=== PATIENT | female | born 1975 | race Caucasian/White ===

== ENCOUNTER 2022-07-15 12:30 | Inpatient (IN) ==
[2022-07-15 13:12] LABS: POC Calcium, Ionized 1.13 (1.16-1.32); POC Creatinine 0.8 (0.6-1.2); POC Potassium 3.8 (3.3-5.1)
[2022-07-15 13:41] LABS: Basophils # (Auto) 0.09 K/mcL (0.00-0.30); Basophils % (Auto) 0.5 % (0.0-2.0); Eosinophils # (Auto) 0.49 K/mcL (0.00-0.70); Hematocrit 39.9 % (34.1-44.9); Lymphocytes # (Auto) 2.42 K/mcL (1.50-4.80); Lymphocytes % (Auto) 14.7 % (15.5-49.0); Mean Cell Volume 91.5 fL (80.0-100.0); Mean Corpuscular HGB Conc 32.6 g/dL (31.0-36.0); Mean Platelet Volume 10.1 fL (8.8-12.5); Monocytes # (Auto) 1.16 K/mcL (0.10-0.90); Monocytes % (Auto) 7.1 % (1.0-12.0); Neutrophils % (Auto) 73.6 % (38.0-78.0); Platelet Count 252 K/mcL (140-440); RBC 4.36 M/mcL (3.59-5.38); Red Cell Distribution Width 13.7 % (11.5-14.5); WBC 16.4 K/mcL (4.5-11.0)
--- NOTE | 2022-07-15 13:49 | Cat Scan Report ---
History: Pneumonia with dyspnea TECHNIQUE: The chest was imaged without contrast in axial plane at 2.5 mm intervals. Sagittal, coronal and MIPS images were created. The radiation exposure was limited using dose reduction technology. FINDINGS: There is a mosaic pattern throughout both lungs. Most of the secondary pulmonary lobules have relatively high attenuation, ground glass opacification but there are many which are hyperlucent. There is a mild patchy distribution of consolidated lung parenchyma in the posterior and central portion of the right upper lobe and smaller area of similar consolidation in the lateral segment of the right middle lobe and beneath the major fissure anteriorly in the middle third of the right lower lobe. No focal consolidation is present in the left lung. There is no pleural effusion. No abnormally enlarged lymph nodes are seen on this nonenhanced study. Trachea and bronchi are normal. There is no apparent bronchial wall thickening or endobronchial mass. Although the pulmonary arteries cannot be evaluated for PE, the main pulmonary artery is normal in caliber and there is no evidence of chronic organized clot in the central pulmonary arteries. The heart is normal in size and contour. Minimal plaque formation is seen in the left anterior descending coronary. Aorta is normal in caliber. There is severe fatty infiltration throughout the liver. Impression: Mosaic lung parenchyma with small patchy infiltrates in the right lung. This is probably due to infection/inflammation, superimposed upon underlying airway disease. This does not appear to be a primary obstructive small airways disease. Chronic pulmonary embolism is also considered unlikely. Pulmonary edema and pulmonary hemorrhage are also in the differential. Interpreted and Authenticated by: Arnoldo Holland 07/15/22
[2022-07-15] MEDS ORDERED: cefTRIAXone 1 GM VIAL IV ONE ×2 (14:20→18:00)
[2022-07-15] MEDS ORDERED: AZITHROMYCIN 500 MG in DEXTROSE 5% IN WATER 250 ML IV ONE (14:20)
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
[2022-07-15 15:00] LABS: Albumin 3.5 gm/dL (3.2-5.2); Bilirubin,Direct 0.5 mg/dL (<0.3); Bilirubin,Total 1.1 mg/dL (0.1-1.0); C-Reactive Protein 14.5 mg/dL (0.03-0.80)
[2022-07-15] MEDS ORDERED: HYDROcodone/APAP 10/325MG TABLET PO ONE (15:26)
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
[2022-07-15] MEDS ORDERED: HYDROcodone/APAP 5/325MG TABLET PO ONE (15:35)
[2022-07-15] MEDS ORDERED: LABETALOL 5 MG/ML ML IV PRN (17:14)
[2022-07-15] MEDS ORDERED: SENNOSIDES 1 TABLET PO PRN (17:14)
[2022-07-15] MEDS ORDERED: POLYETHYLENE GLYCOL 3350 17 GM PACKET PO PRN (17:14)
[2022-07-15] MEDS ORDERED: POTASSIUM CHLORIDE 20 MEQ TABLET PO PRN ×2 (17:14)
[2022-07-15] MEDS ORDERED: ACETAMINOPHEN 325 MG TABLET PO PRN (17:14)
[2022-07-15] MEDS ORDERED: MAGNESIUM SULFATE 2 GM/50 ML BAG IV PRN (17:14)
[2022-07-15] MEDS ORDERED: METOCLOPRAMIDE 10 MG/2 ML VIAL IV PRN (17:14)
[2022-07-15] MEDS ORDERED: ONDANSETRON 4 MG/2 ML VIAL IV PRN (17:14)
[2022-07-15] MEDS ORDERED: POTASSIUM CHLORIDE 40 MEQ in DEXTROSE 5% IN WATER 500 ML IV PRN (17:14)
[2022-07-15] MEDS ORDERED: LACTULOSE 20 GM/30 ML ORAL.SOL PO PRN (17:14)
[2022-07-15] MEDS ORDERED: ALPRAZolam 0.5 MG TABLET PO PRN (19:13)
[2022-07-15] MEDS ORDERED: HYDROcodone/APAP 10/325MG TABLET PO PRN (19:13)
[2022-07-15] MEDS ORDERED: tiZANidine 4 MG TABLET PO PRN (19:40)
[2022-07-15] MEDS: BUDESONIDE 0.5 MG/2 ML AMPUL.NEB NEB SCH (19:46)
[2022-07-15] MEDS: IPRATROPIUM/ALBUTEROL 3 ML AMPUL.NEB NEB PRN (19:46)
[2022-07-15] MEDS: HYDROcodone/APAP 5/325MG TABLET PO PRN (21:31)
[2022-07-15] MEDS: ENOXAPARIN 40 MG/0.4 ML SYRINGE SQ SCH (21:33)
[2022-07-15] MEDS: busPIRone 5 MG TABLET PO SCH (21:33)
[2022-07-15] MEDS: FAMOTIDINE 20 MG TABLET PO SCH (21:34)
[2022-07-15] MEDS: DOCUSATE SODIUM 100 MG CAPSULE PO SCH (21:34)
[2022-07-15] MEDS: traZODone HCL 100 MG TABLET PO SCH (21:34)
[2022-07-15] MEDS: MONTELUKAST 10 MG TABLET PO SCH (21:34)
[2022-07-15] MEDS: NORTRIPTYLINE 25 MG CAPSULE PO SCH (21:34)
[2022-07-15] MEDS: lamoTRIgine 100 MG TABLET PO SCH (21:35)
[2022-07-15] MEDS: morphine 4 MG/ML VIAL IV PRN (21:41)
[2022-07-15] MEDS: 0.9 % SODIUM CHLORIDE 10 ML SYRINGE IV SCH (21:41)
[2022-07-16] MEDS: morphine 4 MG/ML VIAL IV PRN ×2 (02:37→22:49)
[2022-07-16] MEDS: HYDROcodone/APAP 5/325MG TABLET PO PRN ×4 (02:37→19:51)
[2022-07-16] MEDS: 0.9 % SODIUM CHLORIDE 10 ML SYRINGE IV SCH ×3 (05:36→22:29)
[2022-07-16 06:49] LABS: Basophils # (Auto) 0.08 K/mcL (0.00-0.30); Basophils % (Auto) 0.5 % (0.0-2.0); Eosinophils # (Auto) 0.66 K/mcL (0.00-0.70); Eosinophils % (Auto) 4.3 % (0.0-7.0); Hematocrit 36.7 % (34.1-44.9); Hemoglobin 11.4 g/dL (11.2-15.7); Lymphocytes # (Auto) 1.44 K/mcL (1.50-4.80); Lymphocytes % (Auto) 9.5 % (15.5-49.0); Mean Cell Volume 93.6 fL (80.0-100.0); Mean Corpuscular HGB Conc 31.1 g/dL (31.0-36.0); Mean Platelet Volume 10.3 fL (8.8-12.5); Monocytes # (Auto) 1.09 K/mcL (0.10-0.90); Monocytes % (Auto) 7.2 % (1.0-12.0); Neutrophils % (Auto) 77.5 % (38.0-78.0); Platelet Count 232 K/mcL (140-440); RBC 3.92 M/mcL (3.59-5.38); Red Cell Distribution Width 14.1 % (11.5-14.5); WBC 15.2 K/mcL (4.5-11.0)
[2022-07-16 07:49] LABS: ALT/SGPT 13 U/L (<40); AST/SGOT 38 U/L (<32); Albumin/Globulin Ratio 0.9 (1.0-2.3); Alkaline Phosphatase 109 U/L (39-117); Bilirubin,Direct 0.4 mg/dL (<0.3); Bilirubin,Total 0.8 mg/dL (0.1-1.0); Blood Urea Nitrogen 11 mg/dL (6-20); Carbon Dioxide 24 mmol/L (22-30); Chloride 103 mmol/L (96-108); Globulin 3.5 gm/dL (2.2-3.7); Glomerular Filtration Rate 87; Glucose 110 mg/dL (70-105); Lactate Dehydrogenase 791 U/L (135-225); Phosphorous 3.6 mg/dL (2.5-4.5); Triglycerides 96 mg/dL (<150); Uric Acid 4.7 mg/dL (2.5-8.0)
--- NOTE | 2022-07-16 08:04 | Internal Med Progress Note ---
SUBJECTIVE Subjective Patient information: Note initiated : 07/16/22 at 7:58 am Service Date, if different from initiated Date: [] Patient: Manuela Feliciano a 47 y/o F admitted on 07/15/22 for pneumonia/hypoxic pneumonia. Chief Complaint: [] Interval history: History of present illness: Ms. Feliciano is a 47 year old F Presents with shortness of breath and worsening cough. Patient states over the past couple days she has had developing increased shortness of breath and cough. Still denies ago she says she does not feel quite right but can explain in any detail. The next day she started developing gradually increasing shortness of breath. Her cough was not particularly prominent at that time as she does have a chronic cough. However the next morning her cough significantly increased in severity. Her shortness of breath also significantly increased. When she stood up she got dizzy. She is also felt delirious. At one point she did use her CPAP during the day which helped her to feel better and she was able to sleep some with it. She typically only wears oxygen 4 L at night with her CPAP but does not typically wear during the day. Patient denies fevers But has been sweaty. She says she has had a panic attack as well. Patient did have shoulder surgery for 5 days ago on the . Consideration for PE was discussed in the ED with the patient. Patient refused any contrast given her allergy, she is aware of this being in the differential. However, CT chest is significant for pulmonary diffuse parenchymal involvement indicating an alternate explanation, pulmonary aa are normal caliber and she denies unilateral calf pain or swelling. No sudden onset of dyspnea. She was remained active since surgery, as active as she was before surgery. She has chronic pain everywhere she says including fibromyalgia and she takes hydrocodone's. She complains of constipation. In the ER she had a leukocytosis of 16. CT with mosaic lung parenchyma bilaterally and small patchy infiltrate in the right lung. Patient started on IV antibiotics in the ED. Patient on 10 L oxy mask with sats in the mid 90s in the ED. Originally she was hypoxic in the low 80s on room air in the ED. 07/16 Patient required BiPAP overnight. Patient states she does feel like she is breathing a little easier and her cough is improving. But again noted needed increasing oxygen support and poor reserve when off. Review of Systems: Pertinent positives as above. Denies headache/fever/chills/nausea/vomiting/chest or abdominal pain/diarrhea. PHYSICAL EXAM General: Alert, Awake, No acute Distress, obese Eyes/N/T: EOMI, no scleral icterus, Head/Neck: neck supple, full ROM, CV: RRR, No murmurs, Pulm: squeaks/mild Rales &rhonchi b/l, mild respiratory distress Abd: soft, nontender, +BS x4 Ext: no clubbing/cyanosis, trace b/l LE edema, nontender Neuro: Alert, no focal deficits, moves all extremities, sensations intact b/l upper/lower Psychiatric: Skin: warm/dry, normal color Constitutional Vitals: Vital Signs Temp Pulse Resp BP Pulse Ox O2 Del Method O2 Flow Rate 97.0 F 94 H 38 H 91/73 91 High Flow Nasal Cannula 15 07/16/22 04:01 07/16/22 07:25 07/16/22 07:25 07/16/22 04:01 07/16/22 07:25 07/16/22 04:01 07/15/22 20:04 Period Temp Pulse Resp BP Sys/Wolf Pulse Ox O2 Del Method O2 Flow Rate Last 24 Hr 97.0 F-97.3 F 68-120 17-40 62-118/44-89 49-96 BiPAP-Simple Mask 6-15 Intake and Output 07/15/22 07/16/22 07/16/22 19:59 03:59 11:59 Intake Total 250 Output Total 750 Balance 250 -750 Weight 127.006 kg 132.948 kg Intake & Output: Intake & Output 07/15/22 07/16/22 07/16/22 19:59 03:59 11:59 Intake Total 250 Output Total 750 Balance 250 -750 Weight 127.006 kg 132.948 kg Intake: IV 250 Zithromax 500 mg In Dextrose 5% 250 in Water 250 ml @ 250 mls/hr IV ONCE ONE Rx#:[id number] Output: Void Amount 750 Other: Meal Dinner Percent of Meal Consumed 100% Urine Appearance Clear Clear Urine Color Dark Zahida Dark Zahida OBJ DATA Labs 07/16/22 05:26 07/16/22 05:26 Labs: Abnormal Lab Results 07/16/22 07/16/22 07/15/22 05:26 05:26 15:02 WBC 15.2 H Immature Gran % (Auto) 1.0 H Lymph % (Auto) 9.5 L Lymph # (Auto) 1.44 L Mcminn # (Auto) 1.09 H Immature Gran # 0.15 H Absolute Neutrophils 11.79 H ESR VBG Lactic Acid Glucose 110 H POC Glucose POC WB Ioniz Calcium Total Bilirubin Direct Bilirubin 0.4 H GGT 54 H AST 38 H Lactate Dehydrogenase 791 H C-Reactive Protein NT-Pro-B Natriuret Pep 640.9 H Albumin 3.0 L Globulin Albumin/Globulin Ratio 0.9 L Procalcitonin 07/15/22 07/15/22 07/15/22 13:30 13:30 13:08 WBC Immature Gran % (Auto) Lymph % (Auto) Lymph # (Auto) Mcminn # (Auto) Immature Gran # Absolute Neutrophils ESR 81 H VBG Lactic Acid Glucose POC Glucose 117 H POC WB Ioniz Calcium 1.13 L Total Bilirubin 1.1 H Direct Bilirubin 0.5 H GGT AST 34 H Lactate Dehydrogenase C-Reactive Protein 14.50 H NT-Pro-B Natriuret Pep Albumin Globulin 4.0 H Albumin/Globulin Ratio Procalcitonin 07/15/22 07/15/22 07/15/22 13:08 13:05 13:05 WBC 16.4 H Immature Gran % (Auto) 1.1 H Lymph % (Auto) 14.7 L Lymph # (Auto) Mcminn # (Auto) 1.16 H Immature Gran # 0.18 H Absolute Neutrophils 12.10 H ESR VBG Lactic Acid 2.5 H Glucose POC Glucose POC WB Ioniz Calcium Total Bilirubin Direct Bilirubin GGT AST Lactate Dehydrogenase C-Reactive Protein NT-Pro-B Natriuret Pep Albumin Globulin Albumin/Globulin Ratio Procalcitonin 0.22 H Meds: Medications Acetaminophen (Acetaminophen 325 Mg Tablet) 650 mg PO Q6HP PRN; Protocol PRN Reason: Per Pain Protocol/Fever > 101 Hydrocodone Bitart/Acetaminophen (Hydrocodone/Apap 5/325mg Tablet) 1 - 2 tab PO Q4HP PRN PRN Reason: PAIN LEVEL 3-6 Last Admin: 07/16/22 02:37 Dose: 2 tab Albuterol/Ipratropium (Ipratropium/Albuterol 3 Ml Ampul.Neb) 3 ml NEB Q4HP PRN PRN Reason: Shortness Of Breath Last Admin: 07/15/22 19:46 Dose: 3 ml Alprazolam (Alprazolam 0.5 Mg Tablet) 0.5 mg PO BIDP PRN PRN Reason: Anxiety Budesonide (Budesonide 0.5 Mg/2 Ml Ampul.Neb) 0.5 mg NEB Q12 [facility] Last Admin: 07/15/22 19:46 Dose: 0.5 mg Buspirone HCl (Buspirone 5 Mg Tablet) 10 mg PO TID [facility] Last Admin: 07/15/22 21:33 Dose: 10 mg Docusate Sodium (Docusate Sodium 100 Mg Capsule) 100 mg PO BID [facility] Last Admin: 07/15/22 21:34 Dose: 100 mg Enoxaparin Sodium (Enoxaparin 40 Mg/0.4 Ml Syringe) 40 mg SQ BID [facility] Last Admin: 07/15/22 21:33 Dose: 40 mg Famotidine (Famotidine 20 Mg Tablet) 20 mg PO BID [facility] Last Admin: 07/15/22 21:34 Dose: 20 mg Furosemide (Furosemide 20 Mg Tablet) 20 mg PO DAILY [facility] Ceftriaxone Sodium 2 gm/ (Dextrose) 50 mls @ 100 mls/hr IV Q24H [facility]; Protocol Azithromycin 500 mg/ Dextrose 250 mls @ 250 mls/hr IV Q24H [facility]; Protocol Stop: 07/17/22 10:59 Potassium Chloride 40 meq/ (Dextrose) 520 mls @ 130 mls/hr IV UD PRN PRN Reason: Potassium < 3 Magnesium Sulfate (Magnesium Sulfate) 2 gm in 50 mls @ 50 mls/hr IV UD PRN PRN Reason: Magnesium </= 1.6 Isosorbide Dinitrate (Isosorbide Dinitrate 10 Mg Tablet) 5 mg PO TIDAC [facility] Labetalol HCl (Labetalol 5 Mg/Ml Ml) 0 mg IV Q2HP PRN PRN Reason: Hypertension Lactulose (Lactulose 20 Gm/30 Ml Oral.Saira) 20 gm PO DAILYP PRN PRN Reason: Constipation Lamotrigine (Lamotrigine 100 Mg Tablet) 50 mg PO DAILY [facility] Lamotrigine (Lamotrigine 100 Mg Tablet) 150 mg PO HS [facility] Last Admin: 07/15/22 21:35 Dose: 150 mg Levothyroxine Sodium (Levothyroxine 100 Mcg Tablet) 100 mcg PO QAMAC [facility] Metoclopramide HCl (Metoclopramide 10 Mg/2 Ml Vial) 10 mg IV Q6HP PRN PRN Reason: Nausea And Vomiting Montelukast Sodium (Montelukast 10 Mg Tablet) 10 mg PO QPM [facility] Last Admin: 07/15/22 21:34 Dose: 10 mg Morphine Sulfate (Morphine 4 Mg/Ml Vial) 0 mg IV Q3HP PRN PRN Reason: Pain Last Admin: 07/16/22 02:37 Dose: 2 mg Nortriptyline HCl (Nortriptyline 25 Mg Capsule) 75 mg PO [facility] Last Admin: 07/15/22 21:34 Dose: 75 mg Ondansetron HCl (Ondansetron 4 Mg/2 Ml Vial) 4 mg IV Q4HP PRN PRN Reason: Nausea And Vomiting Linaclotide [Linzess (] 290 Mcg Capsule) 1 dose PO DAILYP PRN PRN Reason: Constipation Polyethylene Glycol (Polyethylene Glycol 3350 17 Gm Packet) 17 gm PO DAILYP PRN PRN Reason: Constipation Potassium Chloride (Potassium Chloride 20 Meq Tablet) 40 meq PO UD PRN PRN Reason: Potssium is 3-3.5 Potassium Chloride (Potassium Chloride 20 Meq Tablet) 40 meq PO UD PRN PRN Reason: Potassium < 3 Senna (Sennosides 1 Tablet) 2 tab PO DAILYP PRN PRN Reason: Constipation Last Admin: 07/15/22 21:33 Dose: 2 tab Sodium Chloride (0.9 % Sodium Chloride 10 Ml Syringe) 10 ml IV Q8 [facility] Last Admin: 07/16/22 05:36 Dose: 10 ml Tizanidine HCl (Tizanidine 4 Mg Tablet) 4 mg PO Q6HP PRN PRN Reason: Spasms Trazodone HCl (Trazodone Hcl 100 Mg Tablet) 125 mg PO [facility] Last Admin: 07/15/22 21:34 Dose: 125 mg Venlafaxine HCl (Venlafaxine 37.5 Mg Tab.Er.24h) 37.5 mg PO QDAY [facility] Venlafaxine HCl (Venlafaxine 75 Mg Cap.Xl.24h) 75 mg PO QDAY [facility] A/P Narrative A/P Narrative: A: *Acute hypoxic respiratory failure w/ARDS: -on bipap o/n, attempt to transition vapotherm *PNA, ?atypical bacterial vs Viral: -ESR 81, crp 14.5 -strep/covid/rvp neg *Sepsis w/lactic acidosis(improved): 2/2 above -leukocytosis *Encephalopathy: improved *COPD/Pulmonary fibrosis (on 4L@night with cpap): with possible exacerbation -Pt did have covid several years ago and was in hospital for 10 days, 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 ann *YAMILEX on cpap(4L O2@night only) *Morbid obesity: BMI 47 *HTN: *Depression/anxiety/fibromyalgia: *Chronic pain: On opioids *GERD: *Recent Left shoulder Sx: on by Dr. Sykes *Constipation: * P: -Rocephin/azithromycin, pending SC/BC, mrsa screen neg -myco pending -f/u inflammatory markers -corticosteroids -IS/acapella, nebs,RT -home cpap, prn bipap -wean O2 as able - -Bowel regimen -hold home ACEI for soft BP -cont psych meds -PT/OT -CM for placement needs -ppx: Lovenox obesity dosing / home H2 Time Spent With Patient Time: Total time spent is greater than 50% in coordination of care (as documented) at patient's floor/unit and/or counseling patient: Critical Care Time: Yes Total Critical Care Time: 60
[2022-07-16] MEDS ORDERED: SENNOSIDES 1 TABLET PO ONE (08:06)
[2022-07-16] MEDS ORDERED: POLYETHYLENE GLYCOL 3350 17 GM PACKET PO ONE (08:06)
[2022-07-16] MEDS ORDERED: methylPREDNISolone SOD SUCC 40 MG/ML VIAL IV SCH (08:10)
[2022-07-16] MEDS: ISOSORBIDE DINITRATE 10 MG TABLET PO SCH ×3 (08:29→17:46)
[2022-07-16] MEDS: DOCUSATE SODIUM 100 MG CAPSULE PO SCH ×2 (08:31→22:24)
[2022-07-16] MEDS: VENLAFAXINE 37.5 MG TAB.ER.24H PO SCH (08:31)
[2022-07-16] MEDS: FAMOTIDINE 20 MG TABLET PO SCH ×2 (08:32→22:28)
[2022-07-16] MEDS: lamoTRIgine 100 MG TABLET PO SCH ×2 (08:32→22:27)
[2022-07-16] MEDS: busPIRone 5 MG TABLET PO SCH ×3 (08:32→22:23)
[2022-07-16] MEDS: FUROSEMIDE 20 MG TABLET PO SCH (08:33)
[2022-07-16] MEDS: LEVOTHYROXINE 100 MCG TABLET PO SCH (08:33)
[2022-07-16] MEDS: VENLAFAXINE 75 MG CAP.XL.24H PO SCH (08:33)
[2022-07-16] MEDS: IPRATROPIUM/ALBUTEROL 3 ML AMPUL.NEB NEB PRN (08:56)
[2022-07-16] MEDS: BUDESONIDE 0.5 MG/2 ML AMPUL.NEB NEB SCH ×2 (08:56→19:49)
[2022-07-16] MEDS: NAPROXEN 250 MG TABLET PO SCH ×2 (09:38→22:05)
[2022-07-16] MEDS: ENOXAPARIN 40 MG/0.4 ML SYRINGE SQ SCH ×2 (09:39→22:26)
[2022-07-16] MEDS: cefTRIAXone 2 GM in DEXTROSE 5% IN WATER 50 ML IV SCH (09:39)
[2022-07-16] MEDS ORDERED: ALBUMIN HUMAN 12.5 GM/50 ML VIAL IV SCH (10:00)
[2022-07-16] MEDS ORDERED: FUROSEMIDE 40 MG/4 ML VIAL IV SCH (10:00)
[2022-07-16] MEDS: AZITHROMYCIN 500 MG in DEXTROSE 5% IN WATER 250 ML IV SCH (10:19)
--- NOTE | 2022-07-16 10:37 | XRay Report ---
HISTORY: Pulmonary infiltrates, hypoxia, possible pneumonia or ARDS FINDINGS: There is severe diffuse alveolar opacities throughout both lungs. There is no lobar consolidation. Right diaphragm is mildly elevated. There is no evidence of pleural effusion. Heart size is upper limits of normal. Comparison with the prior CT from yesterday shows no significant change. IMPRESSION: Severe diffuse bilateral alveolar infiltrates with little change. This is a nonspecific finding but can be due to infection, inflammation, edema or ARDS. Interpreted and Authenticated by: Arnoldo Holland 07/16/22
--- NOTE | 2022-07-16 11:45 | EKG ---
[facility] Test Date: 2022-07-15 Pat Name: Manuela Feliciano Department: ED Room: Gender: Female Health Technician: HS : 1975 Requested By: Roberto Lopez Order Number: [id number] Reading MD: Davian Singer Measurements Intervals [place] Rate: 105 P: 45 VT: 194 QRS: 1 QRSD: 94 T: QT: 368 QTc: 488 Interpretive Statements Sinus tachycardia Low voltage, precordial leads Borderline T abnormalities, diffuse leads Borderline prolonged QT interval Electronically Signed On 07-16-2022 11:45:07 PDT by Davian Singer /store/[email or web address]/[id number]
[2022-07-16] MEDS: IPRATROPIUM/ALBUTEROL 3 ML AMPUL.NEB NEB SCH ×2 (13:00→19:49)
[2022-07-16] MEDS: methylPREDNISolone SOD SUCC 40 MG/ML VIAL IV SCH ×2 (15:15→22:29)
[2022-07-16] MEDS: MONTELUKAST 10 MG TABLET PO SCH (22:26)
[2022-07-16] MEDS: traZODone HCL 100 MG TABLET PO SCH (22:28)
[2022-07-16] MEDS: NORTRIPTYLINE 25 MG CAPSULE PO SCH (22:28)
[2022-07-17] MEDS: IPRATROPIUM/ALBUTEROL 3 ML AMPUL.NEB NEB SCH ×4 (03:09→18:25)
[2022-07-17] MEDS: HYDROcodone/APAP 5/325MG TABLET PO PRN ×4 (03:09→21:16)
[2022-07-17] MEDS: methylPREDNISolone SOD SUCC 40 MG/ML VIAL IV SCH ×2 (05:37→14:55)
[2022-07-17] MEDS: 0.9 % SODIUM CHLORIDE 10 ML SYRINGE IV SCH ×3 (05:37→21:08)
[2022-07-17 06:39] LABS: Hematocrit 34.6 % (34.1-44.9); Hemoglobin 11.1 g/dL (11.2-15.7); Mean Cell Volume 89.9 fL (80.0-100.0); Mean Corpuscular HGB Conc 32.1 g/dL (31.0-36.0); Mean Platelet Volume 10.3 fL (8.8-12.5); Platelet Count 254 K/mcL (140-440); RBC 3.85 M/mcL (3.59-5.38); Red Cell Distribution Width 13.6 % (11.5-14.5); WBC 18.2 K/mcL (4.5-11.0)
[2022-07-17] MEDS: ISOSORBIDE DINITRATE 10 MG TABLET PO SCH ×3 (06:49→16:35)
[2022-07-17] MEDS: LEVOTHYROXINE 100 MCG TABLET PO SCH (06:49)
--- NOTE | 2022-07-17 06:58 | Internal Med Progress Note ---
SUBJECTIVE Subjective Patient information: Note initiated : 07/17/22 at 6:55 am Service Date, if different from initiated Date: [] Patient: Manuela Feliciano a 47 y/o F admitted on 07/15/22 for pneumonia/hypoxic pneumonia. Chief Complaint: [] Interval history: History of present illness: Ms. Feliciano is a 47 year old F Presents with shortness of breath and worsening cough. Patient states over the past couple days she has had developing increased shortness of breath and cough. Still denies ago she says she does not feel quite right but can explain in any detail. The next day she started developing gradually increasing shortness of breath. Her cough was not particularly prominent at that time as she does have a chronic cough. However the next morning her cough significantly increased in severity. Her shortness of breath also significantly increased. When she stood up she got dizzy. She is also felt delirious. At one point she did use her CPAP during the day which helped her to feel better and she was able to sleep some with it. She typically only wears oxygen 4 L at night with her CPAP but does not typically wear during the day. Patient denies fevers But has been sweaty. She says she has had a panic attack as well. Patient did have shoulder surgery for 5 days ago on the . Consideration for PE was discussed in the ED with the patient. Patient refused any contrast given her allergy, she is aware of this being in the differential. However, CT chest is significant for pulmonary diffuse parenchymal involvement indicating an alternate explanation, pulmonary aa are normal caliber and she denies unilateral calf pain or swelling. No sudden onset of dyspnea. She was remained active since surgery, as active as she was before surgery. She has chronic pain everywhere she says including fibromyalgia and she takes hydrocodone's. She complains of constipation. In the ER she had a leukocytosis of 16. CT with mosaic lung parenchyma bilaterally and small patchy infiltrate in the right lung. Patient started on IV antibiotics in the ED. Patient on 10 L oxy mask with sats in the mid 90s in the ED. Originally she was hypoxic in the low 80s on room air in the ED. 07/16 Patient required BiPAP overnight. Patient states she does feel like she is breathing a little easier and her cough is improving. But again noted needed increasing oxygen support and poor reserve when off. 07/17 Patient says her cough is starting to loosen up and able to cough up more phlegm. Still awaiting sputum culture. On BiPAP overnight. Goal is to get her down to CPAP at night as she is on at home with oxygen and then room air during the day while she is awake. Leukocytosis worsened but likely secondary to steroids started. Awaiting manual differential. Patient denies shortness of breath at rest. And improving when she is getting up and moving. Review of Systems: Pertinent positives as above. Denies headache/fever/chills/nause a/vomiting/chest or abdominal pain/diarrhea. PHYSICAL EXAM General: Alert, Awake, No acute Distress, obese Eyes/N/T: EOMI, no scleral icterus, Head/Neck: neck supple, full ROM, CV: RRR, No murmurs, Pulm: squeaks/mild Rales & rhonchi b/l mildly improved, no respiratory distress Abd: soft, nontender, +BS x4 Ext: no clubbing/cyanosis, trace b/l LE edema, nontender Neuro: Alert, no focal deficits, moves all extremities, sensations intact b/l upper/lower Psychiatric: Skin: warm/dry, normal color Constitutional Vitals: Vital Signs Temp Pulse Resp BP Pulse Ox O2 Del Method O2 Flow Rate 97.0 F 96 H 24 H 108/70 92 BiPAP 40 07/17/22 04:01 07/17/22 06:41 07/17/22 06:41 07/17/22 06:33 07/17/22 06:41 07/17/22 06:33 07/16/22 20:01 Period Temp Pulse Resp BP Sys/Wolf Pulse Ox O2 Del Method O2 Flow Rate Last 24 Hr 96.9 F-98.2 F 86-107 19-38 101-120/64-88 90-98 BiPAP-Heated High Flow Nasal Ca 40-45 Intake and Output 07/16/22 07/17/22 07/17/22 19:59 03:59 11:59 Intake Total 1290 480 Output Total 800 1200 Balance 490 480 -1200 Weight 132.948 kg 134.263 kg Intake & Output: Intake & Output 07/16/22 07/17/22 07/17/22 19:59 03:59 11:59 Intake Total 1290 480 Output Total 800 1200 Balance 490 480 -1200 Weight 132.948 kg 134.263 kg Intake: IV 50 Rocephin 2 gm In Dextrose 5% in 50 Water 50 ml @ 100 mls/hr IV Q24H [facility] Rx#:[id number] Oral 1240 480 Output: Void Amount 800 1200 Other: Meal Dinner Percent of Meal Consumed 100% Feeding Ability Independent Urine Appearance Clear Clear Clear Urine Color Dark Zahida Dark Zahida Light Zahida Stool Size Copious Stool Color Brown Stool Consistency Formed Liquid Loose # Bowel Movements 1 OBJ DATA Labs 07/17/22 05:37 07/17/22 05:37 Labs: Abnormal Lab Results 07/17/22 07/16/22 07/16/22 05:37 10:43 05:26 WBC 18.2 H Hgb 11.1 L Immature Gran % (Auto) Lymph % (Auto) Lymph # (Auto) Tyler # (Auto) Immature Gran # Absolute Neutrophils ESR POC pCO2 52.4 H* POC HCO3 28.6 H POC Total CO2 30.0 H VBG Lactic Acid Glucose 110 H POC Glucose POC WB Ioniz Calcium Total Bilirubin Direct Bilirubin 0.4 H GGT 54 H AST 38 H Lactate Dehydrogenase 791 H C-Reactive Protein NT-Pro-B Natriuret Pep Albumin 3.0 L Globulin Albumin/Globulin Ratio 0.9 L Procalcitonin 07/16/22 07/15/22 07/15/22 05:26 15:02 13:30 WBC 15.2 H Hgb Immature Gran % (Auto) 1.0 H Lymph % (Auto) 9.5 L Lymph # (Auto) 1.44 L Tyler # (Auto) 1.09 H Immature Gran # 0.15 H Absolute Neutrophils 11.79 H ESR POC pCO2 POC HCO3 POC Total CO2 VBG Lactic Acid Glucose POC Glucose POC WB Ioniz Calcium Total Bilirubin 1.1 H Direct Bilirubin 0.5 H GGT AST 34 H Lactate Dehydrogenase C-Reactive Protein 14.50 H NT-Pro-B Natriuret Pep 640.9 H Albumin Globulin 4.0 H Albumin/Globulin Ratio Procalcitonin 07/15/22 07/15/22 07/15/22 13:30 13:08 13:08 WBC Hgb Immature Gran % (Auto) Lymph % (Auto) Lymph # (Auto) Tyler # (Auto) Immature Gran # Absolute Neutrophils ESR 81 H POC pCO2 POC HCO3 POC Total CO2 VBG Lactic Acid 2.5 H Glucose POC Glucose 117 H POC WB Ioniz Calcium 1.13 L Total Bilirubin Direct Bilirubin GGT AST Lactate Dehydrogenase C-Reactive Protein NT-Pro-B Natriuret Pep Albumin Globulin Albumin/Globulin Ratio Procalcitonin 07/15/22 07/15/22 13:05 13:05 WBC 16.4 H Hgb Immature Gran % (Auto) 1.1 H Lymph % (Auto) 14.7 L Lymph # (Auto) Tyler # (Auto) 1.16 H Immature Gran # 0.18 H Absolute Neutrophils 12.10 H ESR POC pCO2 POC HCO3 POC Total CO2 VBG Lactic Acid Glucose POC Glucose POC WB Ioniz Calcium Total Bilirubin Direct Bilirubin GGT AST Lactate Dehydrogenase C-Reactive Protein NT-Pro-B Natriuret Pep Albumin Globulin Albumin/Globulin Ratio Procalcitonin 0.22 H Meds: Medications Acetaminophen (Acetaminophen 325 Mg Tablet) 650 mg PO Q6HP PRN; Protocol PRN Reason: Per Pain Protocol/Fever > 101 Hydrocodone Bitart/Acetaminophen (Hydrocodone/Apap 5/325mg Tablet) 1 - 2 tab PO Q4HP PRN PRN Reason: PAIN LEVEL 3-6 Last Admin: 07/17/22 03:09 Dose: 2 tab Albuterol/Ipratropium (Ipratropium/Albuterol 3 Ml Ampul.Neb) 3 ml NEB Q4HP PRN PRN Reason: Shortness Of Breath Last Admin: 07/16/22 08:56 Dose: 3 ml Albuterol/Ipratropium (Ipratropium/Albuterol 3 Ml Ampul.Neb) 3 ml NEB Q6HRT [facility] Last Admin: 07/17/22 03:09 Dose: 3 ml Alprazolam (Alprazolam 0.5 Mg Tablet) 0.5 mg PO BIDP PRN PRN Reason: Anxiety Last Admin: 07/16/22 15:21 Dose: 0.5 mg Budesonide (Budesonide 0.5 Mg/2 Ml Ampul.Neb) 0.5 mg NEB Q12 [facility] Last Admin: 07/16/22 19:49 Dose: 0.5 mg Buspirone HCl (Buspirone 5 Mg Tablet) 10 mg PO TID [facility] Last Admin: 07/16/22 22:23 Dose: 10 mg Docusate Sodium (Docusate Sodium 100 Mg Capsule) 100 mg PO BID [facility] Last Admin: 07/16/22 22:24 Dose: Not Given Enoxaparin Sodium (Enoxaparin 40 Mg/0.4 Ml Syringe) 40 mg SQ BID [facility] Last Admin: 07/16/22 22:26 Dose: 40 mg Famotidine (Famotidine 20 Mg Tablet) 20 mg PO BID [facility] Last Admin: 07/16/22 22:28 Dose: 20 mg Furosemide (Furosemide 20 Mg Tablet) 20 mg PO DAILY [facility] Last Admin: 07/16/22 08:33 Dose: 20 mg Ceftriaxone Sodium 2 gm/ (Dextrose) 50 mls @ 100 mls/hr IV Q24H [facility]; Protocol Last Infusion: 07/16/22 12:37 Dose: Infused Azithromycin 500 mg/ Dextrose 250 mls @ 250 mls/hr IV Q24H [facility]; Protocol Stop: 07/17/22 10:59 Last Infusion: 07/16/22 11:19 Dose: Infused Potassium Chloride 40 meq/ (Dextrose) 520 mls @ 130 mls/hr IV UD PRN PRN Reason: Potassium < 3 Magnesium Sulfate (Magnesium Sulfate) 2 gm in 50 mls @ 50 mls/hr IV UD PRN PRN Reason: Magnesium </= 1.6 Isosorbide Dinitrate (Isosorbide Dinitrate 10 Mg Tablet) 5 mg PO TIDAC [facility] Last Admin: 07/17/22 06:49 Dose: 5 mg Labetalol HCl (Labetalol 5 Mg/Ml Ml) 0 mg IV Q2HP PRN PRN Reason: Hypertension Lactulose (Lactulose 20 Gm/30 Ml Oral.Saira) 20 gm PO DAILYP PRN PRN Reason: Constipation Lamotrigine (Lamotrigine 100 Mg Tablet) 50 mg PO DAILY [facility] Last Admin: 07/16/22 08:32 Dose: 50 mg Lamotrigine (Lamotrigine 100 Mg Tablet) 150 mg PO HS [facility] Last Admin: 07/16/22 22:27 Dose: 150 mg Levothyroxine Sodium (Levothyroxine 100 Mcg Tablet) 100 mcg PO QAMAC [facility] Last Admin: 07/17/22 06:49 Dose: 100 mcg Methylprednisolone Sodium Succinate (Methylprednisolone Sod Succ 40 Mg/Ml Vial) 62.5 mg IV Q8 [facility] Last Admin: 07/17/22 05:37 Dose: 62.5 mg Metoclopramide HCl (Metoclopramide 10 Mg/2 Ml Vial) 10 mg IV Q6HP PRN PRN Reason: Nausea And Vomiting Montelukast Sodium (Montelukast 10 Mg Tablet) 10 mg PO QPM [facility] Last Admin: 07/16/22 22:26 Dose: 10 mg Morphine Sulfate (Morphine 4 Mg/Ml Vial) 0 mg IV Q3HP PRN PRN Reason: Pain Last Admin: 07/16/22 22:49 Dose: 3 mg [facility]roxen ([facility] 250 Mg Tablet) [facility] Protocol Stop: 07/17/22 17:31 Last Admin: 07/16/22 22:05 Dose: 250 mg Nortriptyline HCl (Nortriptyline 25 Mg Capsule) 75 mg PO [facility] Last Admin: 07/16/22 22:28 Dose: 75 mg Ondansetron HCl (Ondansetron 4 Mg/2 Ml Vial) 4 mg IV Q4HP PRN PRN Reason: Nausea And Vomiting Linaclotide [Linzess (] 290 Mcg Capsule) 1 dose PO DAILYP PRN PRN Reason: Constipation Last Admin: 07/16/22 14:00 Dose: 1 dose Polyethylene Glycol (Polyethylene Glycol 3350 17 Gm Packet) 17 gm PO DAILYP PRN PRN Reason: Constipation Potassium Chloride (Potassium Chloride 20 Meq Tablet) 40 meq PO UD PRN PRN Reason: Potssium is 3-3.5 Potassium Chloride (Potassium Chloride 20 Meq Tablet) 40 meq PO UD PRN PRN Reason: Potassium < 3 Senna (Sennosides 1 Tablet) 2 tab PO DAILYP PRN PRN Reason: Constipation Last Admin: 07/15/22 21:33 Dose: 2 tab Sodium Chloride (0.9 % Sodium Chloride 10 Ml Syringe) 10 ml IV Q8 [facility] Last Admin: 07/17/22 05:37 Dose: 10 ml Tizanidine HCl (Tizanidine 4 Mg Tablet) 4 mg PO Q6HP PRN PRN Reason: Spasms Trazodone HCl (Trazodone Hcl 100 Mg Tablet) 125 mg PO [facility] Last Admin: 07/16/22 22:28 Dose: 125 mg Venlafaxine HCl (Venlafaxine 37.5 Mg Tab.Er.24h) 37.5 mg PO QDAY [facility] Last Admin: 07/16/22 08:31 Dose: 37.5 mg Venlafaxine HCl (Venlafaxine 75 Mg Cap.Xl.24h) 75 mg PO QDAY [facility] Last Admin: 04/18/23 08:33 Dose: 75 mg A/P Narrative A/P Narrative: A: *Acute hypoxic respiratory failure w/ARDS: -on bipap o/n, attempt to transition vapotherm -diuresis yesterday with little effect *PNA, ?atypical bacterial vs Viral: -ESR 81, crp 14.5 -strep/covid/rvp neg *Sepsis w/lactic acidosis(improved): 2/2 above -leukocytosis increased 2/2 steroids started *Encephalopathy: improved *COPD/Pulmonary fibrosis (on 4L@night with cpap): with possible exacerbation -Pt did have Covid several years ago and was in hospital for 10 days, 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 ann *YAMILEX on cpap(4L O2@night only) *Morbid obesity: BMI 47 *HTN: soft since admit *Depression/anxiety/fibromyalgia: *Chronic pain: On opioids *GERD: *Recent Left shoulder Sx: on by Dr. Sykes *Constipation: improved P: -Rocephin/azithromycin, pending SC/BC, mrsa screen neg -myco pending -f/u inflammatory markers -corticosteroids(Wean) -IS/acapella, nebs,RT -home cpap qhs or prn bipap -wean O2 as able - -Bowel regimen -hold home ACEI for soft BP -cont home lasix -cont psych meds -PT/OT -CM for placement needs -ppx: Lovenox obesity dosing / home H2 Time Spent With Patient Time: Total time spent is greater than 50% in coordination of care (as documented) at patient's floor/unit and/or counseling patient: Critical Care Time: Yes Total Critical Care Time: 50
[2022-07-17] MEDS: BUDESONIDE 0.5 MG/2 ML AMPUL.NEB NEB SCH ×2 (07:04→21:24)
[2022-07-17 07:07] LABS: ALT/SGPT 11 U/L (<40); AST/SGOT 26 U/L (<32); Albumin 3.2 gm/dL (3.2-5.2); Albumin/Globulin Ratio 0.8 (1.0-2.3); Alkaline Phosphatase 111 U/L (39-117); Bilirubin,Direct < 0.2 mg/dL (0-0.3); Bilirubin,Total 0.3 mg/dL (0.1-1.0); Blood Urea Nitrogen 18 mg/dL (6-20); Calcium 9.7 mg/dL (8.6-10.4); Carbon Dioxide 25 mmol/L (22-30); Chloride 101 mmol/L (96-108); Globulin 3.8 gm/dL (2.2-3.7); Glomerular Filtration Rate 87; Glucose 176 mg/dL (70-105); Lactate Dehydrogenase 639 U/L (135-225); Phosphorous 3.9 mg/dL (2.5-4.5); Triglycerides 117 mg/dL (<150); Uric Acid 5.1 mg/dL (2.5-8.0)
[2022-07-17 07:14] LABS: Erythrocyte Sedimentation Rate 79 mm/hr (0-20)
[2022-07-17] MEDS: DOCUSATE SODIUM 100 MG CAPSULE PO SCH ×2 (08:12→20:53)
[2022-07-17] MEDS: FAMOTIDINE 20 MG TABLET PO SCH ×2 (08:41→20:53)
[2022-07-17] MEDS: FUROSEMIDE 20 MG TABLET PO SCH (08:41)
[2022-07-17] MEDS: ENOXAPARIN 40 MG/0.4 ML SYRINGE SQ SCH ×2 (08:41→20:53)
[2022-07-17] MEDS: cefTRIAXone 2 GM in DEXTROSE 5% IN WATER 50 ML IV SCH (08:42)
[2022-07-17 08:44] LABS: Band Neutrophils % 1 % (0-10); Hypochromasia OCC (None Seen); Lymphocytes % 7 % (15-49); Monocytes % (Manual) 3 % (1-12); Nucleated Red Blood Cells 1 % (0-0); Platelet Estimate NORMAL (Normal); RBC Morphology ABNORMAL (Normal); Segmented Neutrophils % 89 % (38-78)
[2022-07-17] MEDS: VENLAFAXINE 75 MG CAP.XL.24H PO SCH (08:46)
[2022-07-17] MEDS: busPIRone 5 MG TABLET PO SCH ×3 (08:46→20:56)
[2022-07-17] MEDS: VENLAFAXINE 37.5 MG TAB.ER.24H PO SCH (08:46)
[2022-07-17] MEDS: lamoTRIgine 100 MG TABLET PO SCH ×2 (08:46→20:54)
[2022-07-17] MEDS: NAPROXEN 250 MG TABLET PO SCH ×2 (08:46→17:53)
[2022-07-17] MEDS: AZITHROMYCIN 500 MG in DEXTROSE 5% IN WATER 250 ML IV SCH (09:34)
[2022-07-17] MEDS: morphine 4 MG/ML VIAL IV PRN ×3 (11:51→18:29)
[2022-07-17] MEDS: IPRATROPIUM/ALBUTEROL 3 ML AMPUL.NEB NEB PRN (15:08)
[2022-07-17] MEDS: NORTRIPTYLINE 25 MG CAPSULE PO SCH (20:53)
[2022-07-17] MEDS: MONTELUKAST 10 MG TABLET PO SCH (20:53)
[2022-07-17] MEDS: traZODone HCL 100 MG TABLET PO SCH (20:55)
[2022-07-17] MEDS: methylPREDNISolone SOD SUCC 125 MG/2 ML VIAL IV SCH (21:07)
[2022-07-18] MEDS: IPRATROPIUM/ALBUTEROL 3 ML AMPUL.NEB NEB SCH ×4 (01:00→19:18)
[2022-07-18] MEDS: IPRATROPIUM/ALBUTEROL 3 ML AMPUL.NEB NEB PRN ×2 (04:34→11:41)
[2022-07-18] MEDS: morphine 4 MG/ML VIAL IV PRN ×5 (04:39→20:34)
[2022-07-18] MEDS: 0.9 % SODIUM CHLORIDE 10 ML SYRINGE IV SCH ×3 (04:41→22:10)
[2022-07-18] MEDS: methylPREDNISolone SOD SUCC 125 MG/2 ML VIAL IV SCH (06:07)
[2022-07-18 06:10] LABS: Basophils # (Auto) 0.04 K/mcL (0.00-0.30); Basophils % (Auto) 0.2 % (0.0-2.0); Eosinophils # (Auto) 0.01 K/mcL (0.00-0.70); Eosinophils % (Auto) 0 % (0.0-7.0); Hematocrit 33.9 % (34.1-44.9); Hemoglobin 10.8 g/dL (11.2-15.7); Lymphocytes % (Auto) 8.2 % (15.5-49.0); Mean Cell Volume 89.7 fL (80.0-100.0); Mean Corpuscular HGB Conc 31.9 g/dL (31.0-36.0); Mean Platelet Volume 9.9 fL (8.8-12.5); Monocytes # (Auto) 1.59 K/mcL (0.10-0.90); Monocytes % (Auto) 7.7 % (1.0-12.0); Neutrophils % (Auto) 82.4 % (38.0-78.0); Platelet Count 304 K/mcL (140-440); RBC 3.78 M/mcL (3.59-5.38); Red Cell Distribution Width 13.7 % (11.5-14.5); WBC 20.7 K/mcL (4.5-11.0)
[2022-07-18 06:41] LABS: ALT/SGPT 11 U/L (<40); AST/SGOT 20 U/L (<32); Albumin 3.3 gm/dL (3.2-5.2); Albumin/Globulin Ratio 0.9 (1.0-2.3); Alkaline Phosphatase 116 U/L (39-117); Bilirubin,Direct < 0.2 mg/dL (0-0.3); Bilirubin,Total 0.2 mg/dL (0.1-1.0); Blood Urea Nitrogen 23 mg/dL (6-20); Calcium 9.6 mg/dL (8.6-10.4); Carbon Dioxide 28 mmol/L (22-30); Chloride 101 mmol/L (96-108); Globulin 3.6 gm/dL (2.2-3.7); Glomerular Filtration Rate 87; Glucose 159 mg/dL (70-105); Lactate Dehydrogenase 598 U/L (135-225); Triglycerides 169 mg/dL (<150); Uric Acid 6.2 mg/dL (2.5-8.0)
[2022-07-18] MEDS: BUDESONIDE 0.5 MG/2 ML AMPUL.NEB NEB SCH ×2 (07:13→19:18)
[2022-07-18] MEDS: LEVOTHYROXINE 100 MCG TABLET PO SCH (07:21)
[2022-07-18] MEDS: ISOSORBIDE DINITRATE 10 MG TABLET PO SCH ×3 (07:21→17:39)
--- NOTE | 2022-07-18 07:54 | Internal Med Progress Note ---
SUBJECTIVE Subjective Patient information: Note initiated : 07/18/22 at 7:49 am Service Date, if different from initiated Date: [] Patient: Manuela Feliciano a 47 y/o F admitted on 07/15/22 for pneumonia/hypoxic pneumonia. Chief Complaint: [] Interval history: History of present illness: Ms. Feliciano is a 47 year old F Presents with shortness of breath and worsening cough. Patient states over the past couple days she has had developing increased shortness of breath and cough. Still denies ago she says she does not feel quite right but can explain in any detail. The next day she started developing gradually increasing shortness of breath. Her cough was not particularly prominent at that time as she does have a chronic cough. However the next morning her cough significantly increased in severity. Her shortness of breath also significantly increased. When she stood up she got dizzy. She is also felt delirious. At one point she did use her CPAP during the day which helped her to feel better and she was able to sleep some with it. She typically only wears oxygen 4 L at night with her CPAP but does not typically wear during the day. Patient denies fevers But has been sweaty. She says she has had a panic attack as well. Patient did have shoulder surgery for 5 days ago on the . Consideration for PE was discussed in the ED with the patient. Patient refused any contrast given her allergy, she is aware of this being in the differential. However, CT chest is significant for pulmonary diffuse parenchymal involvement indicating an alternate explanation, pulmonary aa are normal caliber and she denies unilateral calf pain or swelling. No sudden onset of dyspnea. She was remained active since surgery, as active as she was before surgery. She has chronic pain everywhere she says including fibromyalgia and she takes hydrocodone's. She complains of constipation. In the ER she had a leukocytosis of 16. CT with mosaic lung parenchyma bilaterally and small patchy infiltrate in the right lung. Patient started on IV antibiotics in the ED. Patient on 10 L oxy mask with sats in the mid 90s in the ED. Originally she was hypoxic in the low 80s on room air in the ED. 07/16 Patient required BiPAP overnight. Patient states she does feel like she is breathing a little easier and her cough is improving. But again noted needed increasing oxygen support and poor reserve when off. 07/17 Patient says her cough is starting to loosen up and able to cough up more phlegm. Still awaiting sputum culture. On BiPAP overnight. Goal is to get her down to CPAP at night as she is on at home with oxygen and then room air during the day while she is awake. Leukocytosis worsened but likely secondary to steroids started. Awaiting manual differential. Patient denies shortness of breath at rest. And improving when she is getting up and moving. 07/18 Patient states her breathing is not too bad until she has coughing fits. Cough ing fits are also causing her chest pain and rib pain. She was on BiPAP overnight but not as long. She is on Vapotherm at 45 L/min at 60 FiO2. Leukocytosis mildly worse but patient just started on steroids we will continue to monitor, no bandemia. Review of Systems: Pertinent positives as above. Denies headache/fever/chills/nausea/vomiting/chest or abdominal pain/diarrhea. PHYSICAL EXAM General: Alert, Awake, No acute Distress, obese Eyes/N/T: EOMI, no scleral icterus, Head/Neck: neck supple, full ROM, CV: RRR, No murmurs, Pulm: course rales b/l R>L, no wheezing anteriorly, mild respiratory distress Abd: soft, nontender, +BS x4 Ext: no clubbing/cyanosis, trace b/l LE edema, nontender Neuro: Alert, no focal deficits, moves all extremities, sensations intact b/l upper/lower Psychiatric: Skin: warm/dry, normal color Constitutional Vitals: Vital Signs Temp Pulse Resp BP Pulse Ox O2 Del Method O2 Flow Rate 97.8 F 86 22 94/70 96 Heated High Flow Nasal Cannula 40 07/18/22 04:01 07/18/22 07:33 07/18/22 07:33 07/18/22 04:01 07/18/22 07:33 07/18/22 07:33 07/18/22 07:33 Period Temp Pulse Resp BP Sys/Wolf Pulse Ox O2 Del Method O2 Flow Rate Last 24 Hr 97.8 F-99.8 F 83-111 20-30 94-138/65-88 85-100 BiPAP-Heated High Flow Nasal Ca 20-40 Intake and Output 07/17/22 07/18/22 07/18/22 19:59 03:59 11:59 Intake Total 1200 360 240 Output Total 2100 550 1000 Balance -118 -839 -058 Weight 134.626 kg Intake & Output: Intake & Output 07/17/22 07/18/22 07/18/22 19:59 03:59 11:59 Intake Total 1200 360 240 Output Total 2100 550 1000 Balance -513 -190 -742 Weight 134.626 kg Intake: Oral 1200 360 240 Output: Void Amount 2100 550 1000 Other: Meal Dinner Percent of Meal Consumed 100% Feeding Ability Assist with Tray Set Up Urine Appearance Clear Clear Clear Urine Color Yellow Bright Yellow Yellow OBJ DATA Labs 07/18/22 05:30 07/18/22 05:30 Labs: Abnormal Lab Results 07/18/22 07/18/22 07/17/22 05:30 05:30 05:37 WBC 20.7 H Hgb 10.8 L Hct 33.9 L Immature Gran % (Auto) 1.5 H Neut % (Auto) 82.4 H Lymph % (Auto) 8.2 L Lymph # (Auto) Amador # (Auto) 1.59 H Seg Neutrophils % Lymphocytes % Immature Gran # 0.30 H Absolute Neutrophils 17.01 H Nucleated RBCs RBC Morphology Hypochromasia ESR POC pCO2 POC HCO3 POC Total CO2 VBG Lactic Acid BUN 23 H Glucose 159 H 176 H POC Glucose POC WB Ioniz Calcium Total Bilirubin Direct Bilirubin GGT 48 H 51 H AST Lactate Dehydrogenase 598 H 639 H C-Reactive Protein 18.70 H NT-Pro-B Natriuret Pep Albumin Globulin 3.8 H Albumin/Globulin Ratio 0.9 L 0.8 L Triglycerides 169 H Procalcitonin 07/17/22 07/16/22 07/16/22 05:37 10:43 05:26 WBC 18.2 H Hgb 11.1 L Hct Immature Gran % (Auto) Neut % (Auto) Lymph % (Auto) Lymph # (Auto) Amador # (Auto) Seg Neutrophils % 89 H Lymphocytes % 7 L Immature Gran # Absolute Neutrophils Nucleated RBCs 1 H RBC Morphology Abnormal A Hypochromasia Occ A ESR 79 H POC pCO2 52.4 H* POC HCO3 28.6 H POC Total CO2 30.0 H VBG Lactic Acid BUN Glucose 110 H POC Glucose POC WB Ioniz Calcium Total Bilirubin Direct Bilirubin 0.4 H GGT 54 H AST 38 H Lactate Dehydrogenase 791 H C-Reactive Protein NT-Pro-B Natriuret Pep Albumin 3.0 L Globulin Albumin/Globulin Ratio 0.9 L Triglycerides Procalcitonin 07/16/22 07/15/22 07/15/22 05:26 15:02 13:30 WBC 15.2 H Hgb Hct Immature Gran % (Auto) 1.0 H Neut % (Auto) Lymph % (Auto) 9.5 L Lymph # (Auto) 1.44 L Amador # (Auto) 1.09 H Seg Neutrophils % Lymphocytes % Immature Gran # 0.15 H Absolute Neutrophils 11.79 H Nucleated RBCs RBC Morphology Hypochromasia ESR POC pCO2 POC HCO3 POC Total CO2 VBG Lactic Acid BUN Glucose POC Glucose POC WB Ioniz Calcium Total Bilirubin 1.1 H Direct Bilirubin 0.5 H GGT AST 34 H Lactate Dehydrogenase C-Reactive Protein 14.50 H NT-Pro-B Natriuret Pep 640.9 H Albumin Globulin 4.0 H Albumin/Globulin Ratio Triglycerides Procalcitonin 07/15/22 07/15/22 07/15/22 13:30 13:08 13:08 WBC Hgb Hct Immature Gran % (Auto) Neut % (Auto) Lymph % (Auto) Lymph # (Auto) Amador # (Auto) Seg Neutrophils % Lymphocytes % Immature Gran # Absolute Neutrophils Nucleated RBCs RBC Morphology Hypochromasia ESR 81 H POC pCO2 POC HCO3 POC Total CO2 VBG Lactic Acid 2.5 H BUN Glucose POC Glucose 117 H POC WB Ioniz Calcium 1.13 L Total Bilirubin Direct Bilirubin GGT AST Lactate Dehydrogenase C-Reactive Protein NT-Pro-B Natriuret Pep Albumin Globulin Albumin/Globulin Ratio Triglycerides Procalcitonin 07/15/22 07/15/22 13:05 13:05 WBC 16.4 H Hgb Hct Immature Gran % (Auto) 1.1 H Neut % (Auto) Lymph % (Auto) 14.7 L Lymph # (Auto) Amador # (Auto) 1.16 H Seg Neutrophils % Lymphocytes % Immature Gran # 0.18 H Absolute Neutrophils 12.10 H Nucleated RBCs RBC Morphology Hypochromasia ESR POC pCO2 POC HCO3 POC Total CO2 VBG Lactic Acid BUN Glucose POC Glucose POC WB Ioniz Calcium Total Bilirubin Direct Bilirubin GGT AST Lactate Dehydrogenase C-Reactive Protein NT-Pro-B Natriuret Pep Albumin Globulin Albumin/Globulin Ratio Triglycerides Procalcitonin 0.22 H Meds: Medications Acetaminophen (Acetaminophen 325 Mg Tablet) 650 mg PO Q6HP PRN; Protocol PRN Reason: Per Pain Protocol/Fever > 101 Hydrocodone Bitart/Acetaminophen (Hydrocodone/Apap 5/325mg Tablet) 1 - 2 tab PO Q4HP PRN PRN Reason: PAIN LEVEL 3-6 Last Admin: 07/17/22 21:16 Dose: 1 tab Albuterol/Ipratropium (Ipratropium/Albuterol 3 Ml Ampul.Neb) 3 ml NEB Q4HP PRN PRN Reason: Shortness Of Breath Last Admin: 07/18/22 04:34 Dose: 3 ml Albuterol/Ipratropium (Ipratropium/Albuterol 3 Ml Ampul.Neb) 3 ml NEB Q6HRT [facility] Last Admin: 07/18/22 07:13 Dose: 3 ml Alprazolam (Alprazolam 0.5 Mg Tablet) 0.5 mg PO BIDP PRN PRN Reason: Anxiety Last Admin: 07/16/22 15:21 Dose: 0.5 mg Budesonide (Budesonide 0.5 Mg/2 Ml Ampul.Neb) 0.5 mg NEB Q12 [facility] Last Admin: 07/18/22 07:13 Dose: 0.5 mg Buspirone HCl (Buspirone 5 Mg Tablet) 10 mg PO TID [facility] Last Admin: 07/17/22 20:56 Dose: 10 mg Docusate Sodium (Docusate Sodium 100 Mg Capsule) 100 mg PO BID [facility] Last Admin: 07/17/22 20:53 Dose: 100 mg Enoxaparin Sodium (Enoxaparin 40 Mg/0.4 Ml Syringe) 40 mg SQ BID [facility] Last Admin: 07/17/22 20:53 Dose: 40 mg Famotidine (Famotidine 20 Mg Tablet) 20 mg PO BID [facility] Last Admin: 07/17/22 20:53 Dose: 20 mg Furosemide (Furosemide 20 Mg Tablet) 20 mg PO DAILY [facility] Last Admin: 07/17/22 08:41 Dose: 20 mg Ceftriaxone Sodium 2 gm/ (Dextrose) 50 mls @ 100 mls/hr IV Q24H [facility]; Protocol Last Infusion: 07/17/22 09:52 Dose: Infused Potassium Chloride 40 meq/ (Dextrose) 520 mls @ 130 mls/hr IV UD PRN PRN Reason: Potassium < 3 Magnesium Sulfate (Magnesium Sulfate) 2 gm in 50 mls @ 50 mls/hr IV UD PRN PRN Reason: Magnesium </= 1.6 Isosorbide Dinitrate (Isosorbide Dinitrate 10 Mg Tablet) 5 mg PO TIDAC [facility] Last Admin: 07/18/22 07:21 Dose: 5 mg Labetalol HCl (Labetalol 5 Mg/Ml Ml) 0 mg IV Q2HP PRN PRN Reason: Hypertension Lactulose (Lactulose 20 Gm/30 Ml Oral.Saira) 20 gm PO DAILYP PRN PRN Reason: Constipation Lamotrigine (Lamotrigine 100 Mg Tablet) 50 mg PO DAILY [facility] Last Admin: 07/17/22 08:46 Dose: 50 mg Lamotrigine (Lamotrigine 100 Mg Tablet) 150 mg PO [facility] Last Admin: 07/17/22 20:54 Dose: 150 mg Levothyroxine Sodium (Levothyroxine 100 Mcg Tablet) 100 mcg PO QAMAC [facility] Last Admin: 07/18/22 07:21 Dose: 100 mcg Methylprednisolone Sodium Succinate (Methylprednisolone Sod Succ 125 Mg/2 Ml Vial) 62.5 mg IV Q8 [facility] Last Admin: 07/18/22 06:07 Dose: 62.5 mg Metoclopramide HCl (Metoclopramide 10 Mg/2 Ml Vial) 10 mg IV Q6HP PRN PRN Reason: Nausea And Vomiting Montelukast Sodium (Montelukast 10 Mg Tablet) 10 mg PO QPM [facility] Last Admin: 07/17/22 20:53 Dose: 10 mg Morphine Sulfate (Morphine 4 Mg/Ml Vial) 0 mg IV Q3HP PRN PRN Reason: Pain Last Admin: 07/18/22 07:21 Dose: 3 mg Nortriptyline HCl (Nortriptyline 25 Mg Capsule) 75 mg PO [facility] Last Admin: 07/17/22 20:53 Dose: 75 mg Ondansetron HCl (Ondansetron 4 Mg/2 Ml Vial) 4 mg IV Q4HP PRN PRN Reason: Nausea And Vomiting Linaclotide [Linzess (] 290 Mcg Capsule) 1 dose PO DAILYP PRN PRN Reason: Constipation Last Admin: 07/16/22 14:00 Dose: 1 dose Polyethylene Glycol (Polyethylene Glycol 3350 17 Gm Packet) 17 gm PO DAILYP PRN PRN Reason: Constipation Potassium Chloride (Potassium Chloride 20 Meq Tablet) 40 meq PO UD PRN PRN Reason: Potssium is 3-3.5 Potassium Chloride (Potassium Chloride 20 Meq Tablet) 40 meq PO UD PRN PRN Reason: Potassium < 3 Senna (Sennosides 1 Tablet) 2 tab PO DAILYP PRN PRN Reason: Constipation Last Admin: 07/15/22 21:33 Dose: 2 tab Sodium Chloride (0.9 % Sodium Chloride 10 Ml Syringe) 10 ml IV Q8 [facility] Last Admin: 07/18/22 04:41 Dose: 10 ml Tizanidine HCl (Tizanidine 4 Mg Tablet) 4 mg PO Q6HP PRN PRN Reason: Spasms Trazodone HCl (Trazodone Hcl 100 Mg Tablet) 125 mg PO HS [facility] Last Admin: 07/17/22 20:55 Dose: 125 mg Venlafaxine HCl (Venlafaxine 37.5 Mg Tab.Er.24h) 37.5 mg PO QDAY [facility] Last Admin: 07/17/22 08:46 Dose: 37.5 mg Venlafaxine HCl (Venlafaxine 75 Mg Cap.Xl.24h) 75 mg PO QDAY [facility] Last Admin: 07/17/22 08:46 Dose: 75 mg A/P Narrative A/P Narrative: A: *Acute hypoxic respiratory failure w/ARDS: -on bipap for portion of night and vapotherm remainder on 40lpm/70% - *PNA, ?atypical bacterial vs Viral: -ESR 81, crp 14.5 -strep/covid/rvp neg *Sepsis w/lactic acidosis(improved): 2/2 above -leukocytosis increased 2/2 steroids started, no bandemia, cont to monitor *Encephalopathy: improved *COPD/Pulmonary fibrosis (on 4L@night with cpap): with possible exacerbation -Pt did have Covid several years ago and was in hospital for 10 days, 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 ann *YAMILEX on cpap(4L O2@night only) *Morbid obesity: BMI 47 *HTN: soft since admit *Depression/anxiety/fibromyalgia: *Chronic pain: On opioids *GERD: *Anemia: *Recent Left shoulder Sx: on by Dr. Sykes *Constipation: improved P: -Rocephin/azithromycin, pending SC/BC, mrsa screen neg -myco pending -f/u inflammatory markers -corticosteroids(Wean) -home cpap qhs or prn bipap -IS/acapella, nebs,RT -wean O2 as able -Bowel regimen -hold home ACEI for soft BP -cont home lasix -cont psych meds -PT/OT -CM for placement needs -ppx: Lovenox obesity dosing / home H2 Time Spent With Patient Time: Total time spent is greater than 50% in coordination of care (as documented) at patient's floor/unit and/or counseling patient: Critical Care Time: Yes Total Critical Care Time: 55
[2022-07-18] MEDS: lamoTRIgine 100 MG TABLET PO SCH ×2 (08:43→20:55)
[2022-07-18] MEDS: DOCUSATE SODIUM 100 MG CAPSULE PO SCH ×2 (08:43→20:54)
[2022-07-18] MEDS: FUROSEMIDE 20 MG TABLET PO SCH (08:43)
[2022-07-18] MEDS: FAMOTIDINE 20 MG TABLET PO SCH ×2 (08:43→20:54)
[2022-07-18] MEDS: VENLAFAXINE 37.5 MG TAB.ER.24H PO SCH (08:43)
[2022-07-18] MEDS: busPIRone 5 MG TABLET PO SCH ×3 (08:43→20:56)
[2022-07-18] MEDS: VENLAFAXINE 75 MG CAP.XL.24H PO SCH (08:43)
[2022-07-18] MEDS: ENOXAPARIN 40 MG/0.4 ML SYRINGE SQ SCH ×2 (08:44→20:56)
[2022-07-18] MEDS ORDERED: FUROSEMIDE 20 MG/2 ML VIAL IV ONE (09:17)
[2022-07-18] MEDS ORDERED: HYDROCHLOROTHIAZIDE 12.5 MG CAPSULE PO ONE (09:18)
[2022-07-18] MEDS: cefTRIAXone 2 GM in DEXTROSE 5% IN WATER 50 ML IV SCH (09:54)
[2022-07-18] MEDS: guaiFENesin/CODEINE 10 ML UDC PO PRN ×2 (09:55→17:39)
[2022-07-18] MEDS: methylPREDNISolone SOD SUCC 40 MG/ML VIAL IV SCH ×2 (13:50→22:10)
[2022-07-18] MEDS ORDERED: methylPREDNISolone SOD SUCC 40 MG/ML VIAL IV SCH (14:00)
--- NOTE | 2022-07-18 16:16 | XRay Report ---
HISTORY: Hypoxia pneumonia, ARDS FINDINGS: Diffuse alveolar opacities are present throughout both lungs. These are improving since prior exam done on 07/16/22. There is no pleural effusion. Heart size remains upper limits of normal. Postsurgical changes are again noted in the right shoulder. IMPRESSION: Moderately severe infiltrates in both lungs which are beginning to improve Interpreted and Authenticated by: Arnoldo Holland 07/18/22
[2022-07-18] MEDS: NORTRIPTYLINE 25 MG CAPSULE PO SCH (20:53)
[2022-07-18] MEDS: traZODone HCL 100 MG TABLET PO SCH (20:53)
[2022-07-18] MEDS: MONTELUKAST 10 MG TABLET PO SCH (20:54)
[2022-07-18] MEDS: LORazepam 2 MG/ML VIAL IV PRN (22:20)
[2022-07-19] MEDS: IPRATROPIUM/ALBUTEROL 3 ML AMPUL.NEB NEB SCH ×4 (00:57→14:58)
[2022-07-19] MEDS: morphine 4 MG/ML VIAL IV PRN (04:14)
[2022-07-19] MEDS: IPRATROPIUM/ALBUTEROL 3 ML AMPUL.NEB NEB PRN ×2 (04:28→20:19)
[2022-07-19] MEDS: methylPREDNISolone SOD SUCC 40 MG/ML VIAL IV SCH ×3 (05:46→21:22)
[2022-07-19] MEDS: 0.9 % SODIUM CHLORIDE 10 ML SYRINGE IV SCH ×3 (05:47→21:22)
[2022-07-19 06:24] LABS: Basophils # (Auto) 0.03 K/mcL (0.00-0.30); Basophils % (Auto) 0.2 % (0.0-2.0); Eosinophils # (Auto) 0.02 K/mcL (0.00-0.70); Eosinophils % (Auto) 0.1 % (0.0-7.0); Hematocrit 34.4 % (34.1-44.9); Hemoglobin 10.9 g/dL (11.2-15.7); Lymphocytes # (Auto) 2.32 K/mcL (1.50-4.80); Lymphocytes % (Auto) 13.9 % (15.5-49.0); Mean Cell Volume 90.3 fL (80.0-100.0); Mean Corpuscular HGB Conc 31.7 g/dL (31.0-36.0); Mean Platelet Volume 9.9 fL (8.8-12.5); Monocytes # (Auto) 1.54 K/mcL (0.10-0.90); Monocytes % (Auto) 9.2 % (1.0-12.0); Neutrophils % (Auto) 73.7 % (38.0-78.0); Platelet Count 294 K/mcL (140-440); RBC 3.81 M/mcL (3.59-5.38); WBC 16.7 K/mcL (4.5-11.0)
[2022-07-19 06:45] LABS: ALT/SGPT 12 U/L (<40); AST/SGOT 22 U/L (<32); Albumin 3.2 gm/dL (3.2-5.2); Albumin/Globulin Ratio 0.9 (1.0-2.3); Alkaline Phosphatase 114 U/L (39-117); Bilirubin,Direct < 0.2 mg/dL (0-0.3); Bilirubin,Total 0.3 mg/dL (0.1-1.0); Blood Urea Nitrogen 23 mg/dL (6-20); Calcium 9.4 mg/dL (8.6-10.4); Carbon Dioxide 29 mmol/L (22-30); Chloride 97 mmol/L (96-108); Erythrocyte Sedimentation Rate 77 mm/hr (0-20); Globulin 3.4 gm/dL (2.2-3.7); Glomerular Filtration Rate 87; Glucose 139 mg/dL (70-105); Lactate Dehydrogenase 510 U/L (135-225); Phosphorous 3.6 mg/dL (2.5-4.5); Triglycerides 135 mg/dL (<150); Uric Acid 6.4 mg/dL (2.5-8.0)
[2022-07-19] MEDS: BUDESONIDE 0.5 MG/2 ML AMPUL.NEB NEB SCH ×2 (07:01→20:19)
[2022-07-19] MEDS: ISOSORBIDE DINITRATE 10 MG TABLET PO SCH ×3 (07:51→17:49)
[2022-07-19] MEDS: LEVOTHYROXINE 100 MCG TABLET PO SCH (07:51)
[2022-07-19] MEDS: HYDROcodone/APAP 5/325MG TABLET PO PRN ×3 (08:05→18:54)
[2022-07-19] MEDS: guaiFENesin/CODEINE 10 ML UDC PO PRN ×2 (08:05→14:58)
--- NOTE | 2022-07-19 08:12 | Internal Med Progress Note ---
SUBJECTIVE Subjective Patient information: Note initiated : 07/19/22 at 8:05 am Service Date, if different from initiated Date: [] Patient: Manuela Feliciano a 47 y/o F admitted on 07/15/22 for pneumonia/hypoxic pneumonia. Chief Complaint: [] Interval history: History of present illness: Ms. Feliciano is a 47 year old F Presents with shortness of breath and worsening cough. Patient states over the past couple days she has had developing increased shortness of breath and cough. Still denies ago she says she does not feel quite right but can explain in any detail. The next day she started developing gradually increasing shortness of breath. Her cough was not particularly prominent at that time as she does have a chronic cough. However the next morning her cough significantly increased in severity. Her shortness of breath also significantly increased. When she stood up she got dizzy. She is also felt delirious. At one point she did use her CPAP during the day which helped her to feel better and she was able to sleep some with it. She typically only wears oxygen 4 L at night with her CPAP but does not typically wear during the day. Patient denies fevers But has been sweaty. She says she has had a panic attack as well. Patient did have shoulder surgery for 5 days ago on the . Consideration for PE was discussed in the ED with the patient. Patient refused any contrast given her allergy, she is aware of this being in the differential. However, CT chest is significant for pulmonary diffuse parenchymal involvement indicating an alternate explanation, pulmonary aa are normal caliber and she denies unilateral calf pain or swelling. No sudden onset of dyspnea. She was remained active since surgery, as active as she was before surgery. She has chronic pain everywhere she says including fibromyalgia and she takes hydrocodone's. She complains of constipation. In the ER she had a leukocytosis of 16. CT with mosaic lung parenchyma bilaterally and small patchy infiltrate in the right lung. Patient started on IV antibiotics in the ED. Patient on 10 L oxy mask with sats in the mid 90s in the ED. Originally she was hypoxic in the low 80s on room air in the ED. 07/16 Patient required BiPAP overnight. Patient states she does feel like she is breathing a little easier and her cough is improving. But again noted needed increasing oxygen support and poor reserve when off. 07/17 Patient says her cough is starting to loosen up and able to cough up more phlegm. Still awaiting sputum culture. On BiPAP overnight. Goal is to get her down to CPAP at night as she is on at home with oxygen and then room air during the day while she is awake. Leukocytosis worsened but likely secondary to steroids started. Awaiting manual differential. Patient denies shortness of breath at rest. And improving when she is getting up and moving. 07/18 Patient states her breathing is not too bad until she has coughing fits. Cough ing fits are also causing her chest pain and rib pain. She was on BiPAP overnight but not as long. She is on Vapotherm at 45 L/min at 60 FiO2. Leukocytosis mildly worse but patient just started on steroids we will continue to monitor, no bandemia. 07/19 Patient states she is having less coughing fits which really drop her oxygen saturations and take some time to come out. Denies any shortness of breath while in bed at rest. She is on 45 L/min at 55 FiO2 and will start titrating down her FiO2 again. Leukocytosis present but starting to improve. CRP which is elevating starting to improve. Excellent urine output yesterday but did not make a significant improvement in her breathing status. Review of Systems: Pertinent positives as above. Denies headache/fever/chills/nausea/vomiting/c hest or abdominal pain/diarrhea. PHYSICAL EXAM General: Alert, Awake, No acute Distress, obese Eyes/N/T: EOMI, no scleral icterus, Head/Neck: neck supple, full ROM, CV: RRR, No murmurs, Pulm: course rales b/l R>L mildly improved, rhonchi/squeaks b/l, no wheezing anteriorly, Abd: soft, nontender, +BS x4 Ext: no clubbing/cyanosis, trace b/l LE edema, nontender Neuro: Alert, no focal deficits, moves all extremities, sensations intact b/l upper/lower Psychiatric: Skin: warm/dry, normal color Constitutional Vitals: Vital Signs Temp Pulse Resp BP Pulse Ox O2 Del Method O2 Flow Rate 97.8 F 83 20 128/75 92 Heated High Flow Nasal Cannula 50 07/19/22 04:29 07/19/22 06:26 07/19/22 06:26 07/19/22 06:53 07/19/22 06:55 07/19/22 06:55 07/19/22 06:55 Period Temp Pulse Resp BP Sys/Wolf Pulse Ox O2 Del Method O2 Flow Rate Last 24 Hr 97.4 F-98.4 F 81-108 18-34 107-140/73-110 88-98 BiPAP-Room Air, Heated High Flow Nasal Ca 45-50 Intake and Output 07/18/22 07/19/22 07/19/22 19:59 03:59 11:59 Intake Total 930 200 700 Output Total 1300 800 900 Balance -370 -600 -200 Weight 132.222 kg Intake & Output: Intake & Output 07/18/22 07/19/22 07/19/22 19:59 03:59 11:59 Intake Total 930 200 700 Output Total 1300 800 900 Balance -370 -600 -200 Weight 132.222 kg Intake: IV 50 Rocephin 2 gm In Dextrose 5% in 50 Water 50 ml @ 100 mls/hr IV Q24H [facility] Rx#:[id number] Oral 880 200 700 Output: Void Amount 1300 800 900 Other: Meal Dinner Percent of Meal Consumed 100% Feeding Ability Independent Urine Appearance Clear Clear Urine Color Yellow Yellow Yellow Urine Odor Normal OBJ DATA Labs 07/19/22 05:43 07/19/22 05:43 Labs: Abnormal Lab Results 07/19/22 07/19/22 07/18/22 05:43 05:43 05:30 WBC 16.7 H Hgb 10.9 L Hct Immature Gran % (Auto) 2.9 H Neut % (Auto) Lymph % (Auto) 13.9 L [place] # (Auto) 1.54 H Seg Neutrophils % Lymphocytes % Immature Gran # 0.49 H Absolute Neutrophils 12.26 H Nucleated RBCs RBC Morphology Hypochromasia ESR 77 H POC pCO2 POC HCO3 POC Total CO2 BUN 23 H 23 H Glucose 139 H 159 H GGT 60 H 48 H Lactate Dehydrogenase 510 H 598 H C-Reactive Protein 3.60 H Globulin Albumin/Globulin Ratio 0.9 L 0.9 L Triglycerides 169 H 07/18/22 07/17/22 07/17/22 05:30 05:37 05:37 WBC 20.7 H 18.2 H Hgb 10.8 L 11.1 L Hct 33.9 L Immature Gran % (Auto) 1.5 H Neut % (Auto) 82.4 H Lymph % (Auto) 8.2 L [place] # (Auto) 1.59 H Seg Neutrophils % 89 H Lymphocytes % 7 L Immature Gran # 0.30 H Absolute Neutrophils 17.01 H Nucleated RBCs 1 H RBC Morphology Abnormal A Hypochromasia Occ A ESR 79 H POC pCO2 POC HCO3 POC Total CO2 BUN Glucose 176 H GGT 51 H Lactate Dehydrogenase 639 H C-Reactive Protein 18.70 H Globulin 3.8 H Albumin/Globulin Ratio 0.8 L Triglycerides 07/16/22 10:43 WBC Hgb Hct Immature Gran % (Auto) Neut % (Auto) Lymph % (Auto) [place] # (Auto) Seg Neutrophils % Lymphocytes % Immature Gran # Absolute Neutrophils Nucleated RBCs RBC Morphology Hypochromasia ESR POC pCO2 52.4 H* POC HCO3 28.6 H POC Total CO2 30.0 H BUN Glucose GGT Lactate Dehydrogenase C-Reactive Protein Globulin Albumin/Globulin Ratio Triglycerides Meds: Medications Acetaminophen (Acetaminophen 325 Mg Tablet) 650 mg PO Q6HP PRN; Protocol PRN Reason: Per Pain Protocol/Fever > 101 Hydrocodone Bitart/Acetaminophen (Hydrocodone/Apap 5/325mg Tablet) 1 - 2 tab PO Q4HP PRN PRN Reason: PAIN LEVEL 3-6 Last Admin: 07/17/22 21:16 Dose: 1 tab Albuterol/Ipratropium (Ipratropium/Albuterol 3 Ml Ampul.Neb) 3 ml NEB Q4HP PRN PRN Reason: Shortness Of Breath Last Admin: 07/19/22 04:28 Dose: 3 ml Albuterol/Ipratropium (Ipratropium/Albuterol 3 Ml Ampul.Neb) 3 ml NEB Q6HRT [facility] Last Admin: 07/19/22 07:01 Dose: 3 ml Benzonatate (Benzonatate 100 Mg Capsule) 200 mg PO TIDP PRN PRN Reason: Cough Budesonide (Budesonide 0.5 Mg/2 Ml Ampul.Neb) 0.5 mg NEB Q12 [facility] Last Admin: 07/19/22 07:01 Dose: 0.5 mg Buspirone HCl (Buspirone 5 Mg Tablet) 10 mg PO TID [facility] Last Admin: 07/18/22 20:56 Dose: 10 mg Docusate Sodium (Docusate Sodium 100 Mg Capsule) 100 mg PO BID [facility] Last Admin: 07/18/22 20:54 Dose: 100 mg Enoxaparin Sodium (Enoxaparin 40 Mg/0.4 Ml Syringe) 40 mg SQ BID [facility] Last Admin: 07/18/22 20:56 Dose: 40 mg Famotidine (Famotidine 20 Mg Tablet) 20 mg PO BID [facility] Last Admin: 07/18/22 20:54 Dose: 20 mg Furosemide (Furosemide 20 Mg Tablet) 20 mg PO DAILY [facility] Last Admin: 07/18/22 08:43 Dose: 20 mg Guaifenesin/Codeine Phosphate (Guaifenesin/Codeine 10 Ml Udc) 10 ml PO Q4HP PRN PRN Reason: Cough Last Admin: 07/18/22 17:39 Dose: 10 ml Ceftriaxone Sodium 2 gm/ (Dextrose) 50 mls @ 100 mls/hr IV Q24H [facility]; Protocol Last Infusion: 07/18/22 12:50 Dose: Infused Potassium Chloride 40 meq/ (Dextrose) 520 mls @ 130 mls/hr IV UD PRN PRN Reason: Potassium < 3 Magnesium Sulfate (Magnesium Sulfate) 2 gm in 50 mls @ 50 mls/hr IV UD PRN PRN Reason: Magnesium </= 1.6 Isosorbide Dinitrate (Isosorbide Dinitrate 10 Mg Tablet) 5 mg PO TIDAC [facility] Last Admin: 07/19/22 07:51 Dose: 5 mg Labetalol HCl (Labetalol 5 Mg/Ml Ml) 0 mg IV Q2HP PRN PRN Reason: Hypertension Lactulose (Lactulose 20 Gm/30 Ml Oral.Saira) 20 gm PO DAILYP PRN PRN Reason: Constipation Lamotrigine (Lamotrigine 100 Mg Tablet) 50 mg PO DAILY [facility] Last Admin: 07/18/22 08:43 Dose: 50 mg Lamotrigine (Lamotrigine 100 Mg Tablet) 150 mg PO HS [facility] Last Admin: 07/18/22 20:55 Dose: 150 mg Levothyroxine Sodium (Levothyroxine 100 Mcg Tablet) 100 mcg PO QAMAC [facility] Last Admin: 07/19/22 07:51 Dose: 100 mcg Lorazepam (Lorazepam 2 Mg/Ml Vial) 0.5 mg IV Q6HP PRN PRN Reason: ANXIETY/SEDATION Last Admin: 07/18/22 22:20 Dose: 0.5 mg Methylprednisolone Sodium Succinate (Methylprednisolone Sod Succ 40 Mg/Ml Vial) 40 mg IV Q8 [facility] Last Admin: 07/19/22 05:46 Dose: 40 mg Metoclopramide HCl (Metoclopramide 10 Mg/2 Ml Vial) 10 mg IV Q6HP PRN PRN Reason: Nausea And Vomiting Montelukast Sodium (Montelukast 10 Mg Tablet) 10 mg PO QPM [facility] Last Admin: 07/18/22 20:54 Dose: 10 mg Morphine Sulfate (Morphine 4 Mg/Ml Vial) 0 mg IV Q3HP PRN PRN Reason: Pain Last Admin: 07/19/22 04:14 Dose: 3 mg Nortriptyline HCl (Nortriptyline 25 Mg Capsule) 75 mg PO [facility] Last Admin: 07/18/22 20:53 Dose: 75 mg Ondansetron HCl (Ondansetron 4 Mg/2 Ml Vial) 4 mg IV Q4HP PRN PRN Reason: Nausea And Vomiting Linaclotide [Linzess (] 290 Mcg Capsule) 1 dose PO DAILYP PRN PRN Reason: Constipation Last Admin: 07/16/22 14:00 Dose: 1 dose Polyethylene Glycol (Polyethylene Glycol 3350 17 Gm Packet) 17 gm PO DAILYP PRN PRN Reason: Constipation Potassium Chloride (Potassium Chloride 20 Meq Tablet) 40 meq PO UD PRN PRN Reason: Potssium is 3-3.5 Potassium Chloride (Potassium Chloride 20 Meq Tablet) 40 meq PO UD PRN PRN Reason: Potassium < 3 Senna (Sennosides 1 Tablet) 2 tab PO DAILYP PRN PRN Reason: Constipation Last Admin: 07/15/22 21:33 Dose: 2 tab Sodium Chloride (0.9 % Sodium Chloride 10 Ml Syringe) 10 ml IV Q8 [facility] Last Admin: 07/19/22 05:47 Dose: 10 ml Tizanidine HCl (Tizanidine 4 Mg Tablet) 4 mg PO Q6HP PRN PRN Reason: Spasms Trazodone HCl (Trazodone Hcl 100 Mg Tablet) 125 mg PO [facility] Last Admin: 07/18/22 20:53 Dose: 125 mg Venlafaxine HCl (Venlafaxine 37.5 Mg Tab.Er.24h) 37.5 mg PO QDAY [facility] Last Admin: 07/18/22 08:43 Dose: 37.5 mg Venlafaxine HCl (Venlafaxine 75 Mg Cap.Xl.24h) 75 mg PO QDAY [facility] Last Admin: 07/18/22 08:43 Dose: 75 mg A/P Narrative A/P Narrative: A: *Acute hypoxic respiratory failure w/ARDS: -on bipap for portion of night and vapotherm remainder on 45-50lpm/50-55% -good diuresis with lasix but no significant improvement -poor reserves, easily desats *PNA, ?atypical bacterial vs Viral: -ESR 81, crp worsned but now improving -strep/flu/covid/rvp neg *Sepsis w/lactic acidosis(improved): 2/2 above -leukocytosis starting to decrease now, no bandemia, cont to monitor *Encephalopathy: improved *COPD/Pulmonary fibrosis (on 4L@night with cpap): with possible exacerbation -Pt did have Covid several years ago and was in hospital for 10 days, 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 ann *YAMILEX on cpap(4L O2@night only) *Morbid obesity: BMI 47 *HTN: soft since admit *Depression/anxiety/fibromyalgia: *Chronic pain: On opioids *GERD: *Anemia: *Recent Left shoulder Sx: on by Dr. Sykes *Constipation: improved P: -Rocephin/azithromycin, pending SC/BC, mrsa screen neg -myco pending -f/u inflammatory markers -corticosteroids(Wean) -home cpap qhs or prn bipap -IS/acapella, nebs,RT -wean O2 as able -Bowel regimen -hold home ACEI for initially soft BP, restart as needed -cont home lasix, prn IV -cont psych meds -PT/OT -CM for placement needs -ppx: Lovenox obesity dosing / home H2 Time Spent With Patient Time: Total time spent is greater than 50% in coordination of care (as documented) at patient's floor/unit and/or counseling patient: Critical Care Time: Yes Total Critical Care Time: 55
[2022-07-19] MEDS: ENOXAPARIN 40 MG/0.4 ML SYRINGE SQ SCH ×2 (08:31→21:22)
[2022-07-19] MEDS: busPIRone 5 MG TABLET PO SCH ×3 (08:32→21:19)
[2022-07-19] MEDS: FAMOTIDINE 20 MG TABLET PO SCH ×2 (08:32→21:21)
[2022-07-19] MEDS: VENLAFAXINE 37.5 MG TAB.ER.24H PO SCH (08:32)
[2022-07-19] MEDS: VENLAFAXINE 75 MG CAP.XL.24H PO SCH (08:32)
[2022-07-19] MEDS: DOCUSATE SODIUM 100 MG CAPSULE PO SCH ×2 (08:32→21:19)
[2022-07-19] MEDS: lamoTRIgine 100 MG TABLET PO SCH ×2 (08:32→21:21)
[2022-07-19] MEDS: FUROSEMIDE 20 MG TABLET PO SCH (08:33)
[2022-07-19] MEDS: BENZONATATE 100 MG CAPSULE PO PRN ×2 (09:05→17:50)
[2022-07-19] MEDS: cefTRIAXone 2 GM in DEXTROSE 5% IN WATER 50 ML IV SCH (09:06)
[2022-07-19] MEDS: LORazepam 2 MG/ML VIAL IV PRN ×2 (14:29→22:27)
[2022-07-19] MEDS: traZODone HCL 100 MG TABLET PO SCH (21:20)
[2022-07-19] MEDS: NORTRIPTYLINE 25 MG CAPSULE PO SCH (21:20)
[2022-07-19] MEDS: MONTELUKAST 10 MG TABLET PO SCH (21:21)
[2022-07-20] MEDS: IPRATROPIUM/ALBUTEROL 3 ML AMPUL.NEB NEB SCH ×3 (00:49→16:25)
[2022-07-20] MEDS: morphine 4 MG/ML VIAL IV PRN ×2 (03:13→07:41)
[2022-07-20] MEDS: IPRATROPIUM/ALBUTEROL 3 ML AMPUL.NEB NEB PRN (03:14)
[2022-07-20] MEDS: methylPREDNISolone SOD SUCC 40 MG/ML VIAL IV SCH ×2 (05:20→21:12)
[2022-07-20] MEDS: 0.9 % SODIUM CHLORIDE 10 ML SYRINGE IV SCH ×3 (05:21→21:13)
[2022-07-20] MEDS: HYDROcodone/APAP 5/325MG TABLET PO PRN ×3 (05:21→18:49)
[2022-07-20 06:20] LABS: Basophils # (Auto) 0.05 K/mcL (0.00-0.30); Basophils % (Auto) 0.3 % (0.0-2.0); Eosinophils # (Auto) 0.05 K/mcL (0.00-0.70); Eosinophils % (Auto) 0.3 % (0.0-7.0); Hematocrit 35.6 % (34.1-44.9); Hemoglobin 11.4 g/dL (11.2-15.7); Lymphocytes # (Auto) 2.76 K/mcL (1.50-4.80); Lymphocytes % (Auto) 15.8 % (15.5-49.0); Mean Cell Volume 90.4 fL (80.0-100.0); Mean Platelet Volume 9.8 fL (8.8-12.5); Monocytes # (Auto) 1.55 K/mcL (0.10-0.90); Monocytes % (Auto) 8.9 % (1.0-12.0); Neutrophils % (Auto) 70.1 % (38.0-78.0); Platelet Count 315 K/mcL (140-440); RBC 3.94 M/mcL (3.59-5.38); Red Cell Distribution Width 13.8 % (11.5-14.5); WBC 17.5 K/mcL (4.5-11.0)
[2022-07-20 06:44] LABS: Blood Urea Nitrogen 23 mg/dL (6-20); Calcium 9.2 mg/dL (8.6-10.4); Carbon Dioxide 29 mmol/L (22-30); Chloride 98 mmol/L (96-108); Glomerular Filtration Rate 87; Glucose 130 mg/dL (70-105)
[2022-07-20] MEDS: ISOSORBIDE DINITRATE 10 MG TABLET PO SCH ×3 (07:20→17:47)
[2022-07-20] MEDS: LEVOTHYROXINE 100 MCG TABLET PO SCH (07:20)
[2022-07-20] MEDS: guaiFENesin/CODEINE 10 ML UDC PO PRN (07:41)
--- NOTE | 2022-07-20 07:55 | Internal Med Progress Note ---
SUBJECTIVE Subjective Patient information: Note initiated : 07/20/22 at 7:52 am Service Date, if different from initiated Date: [] Patient: Manuela Feliciano a 47 y/o F admitted on 07/15/22 for pneumonia/hypoxic pneumonia. Chief Complaint: [] Interval history: History of present illness: Ms. Feliciano is a 47 year old F Presents with shortness of breath and worsening cough. Patient states over the past couple days she has had developing increased shortness of breath and cough. Still denies ago she says she does not feel quite right but can explain in any detail. The next day she started developing gradually increasing shortness of breath. Her cough was not particularly prominent at that time as she does have a chronic cough. However the next morning her cough significantly increased in severity. Her shortness of breath also significantly increased. When she stood up she got dizzy. She is also felt delirious. At one point she did use her CPAP during the day which helped her to feel better and she was able to sleep some with it. She typically only wears oxygen 4 L at night with her CPAP but does not typically wear during the day. Patient denies fevers But has been sweaty. She says she has had a panic attack as well. Patient did have shoulder surgery for 5 days ago on the . Consideration for PE was discussed in the ED with the patient. Patient refused any contrast given her allergy, she is aware of this being in the differential. However, CT chest is significant for pulmonary diffuse parenchymal involvement indicating an alternate explanation, pulmonary aa are normal caliber and she denies unilateral calf pain or swelling. No sudden onset of dyspnea. She was remained active since surgery, as active as she was before surgery. She has chronic pain everywhere she says including fibromyalgia and she takes hydrocodone's. She complains of constipation. In the ER she had a leukocytosis of 16. CT with mosaic lung parenchyma bilaterally and small patchy infiltrate in the right lung. Patient started on IV antibiotics in the ED. Patient on 10 L oxy mask with sats in the mid 90s in the ED. Originally she was hypoxic in the low 80s on room air in the ED. 07/16 Patient required BiPAP overnight. Patient states she does feel like she is breathing a little easier and her cough is improving. But again noted needed increasing oxygen support and poor reserve when off. 07/17 Patient says her cough is starting to loosen up and able to cough up more phlegm. Still awaiting sputum culture. On BiPAP overnight. Goal is to get her down to CPAP at night as she is on at home with oxygen and then room air during the day while she is awake. Leukocytosis worsened but likely secondary to steroids started. Awaiting manual differential. Patient denies shortness of breath at rest. And improving when she is getting up and moving. 07/18 Patient states her breathing is not too bad until she has coughing fits. Cough ing fits are also causing her chest pain and rib pain. She was on BiPAP overnight but not as long. She is on Vapotherm at 45 L/min at 60 FiO2. Leukocytosis mildly worse but patient just started on steroids we will continue to monitor, no bandemia. 07/19 Patient states she is having less coughing fits which really drop her oxygen saturations and take some time to come out. Denies any shortness of breath while in bed at rest. She is on 45 L/min at 55 FiO2 and will start titrating down her FiO2 again. Leukocytosis present but starting to improve. CRP which is elevating starting to improve. Excellent urine output yesterday but did not make a significant improvement in her breathing status. 07/20 Patient making slow progress. Coughing frequency decreasing. She did have a coughing fit middle the night which caused her desat for a while but she came back up. Follow-up chest x-ray today. Down to 45 L/min and 40% FiO2. Persistent leukocytosis. Patient does not think she can prone with her shoulder but will Position as close as possible. Review of Systems: Pertinent positives as above. Denies headache/fever/chills/nausea/vomiting/chest or abdominal pain/diarrhea. PHYSICAL EXAM General: Alert, Awake, No acute Distress, obese Eyes/N/T: EOMI, no scleral icterus, Head/Neck: neck supple, full ROM, CV: RRR, No murmurs, Pulm: course rales b/l, no wheezing anteriorly, Abd: soft, nontender, +BS x4 Ext: no clubbing/cyanosis, trace b/l LE edema, nontender Neuro: Alert, no focal deficits, moves all extremities, sensations intact b/l upper/lower Psychiatric: Skin: warm/dry, normal color Constitutional Vitals: Vital Signs Temp Pulse Resp BP Pulse Ox O2 Del Method O2 Flow Rate 98.8 F 83 20 128/90 91 Heated High Flow Nasal Cannula 45 07/20/22 03:15 07/20/22 06:01 07/20/22 06:01 07/20/22 06:01 07/20/22 06:01 07/20/22 06:01 07/20/22 06:01 Period Temp Pulse Resp BP Sys/Wolf Pulse Ox O2 Del Method O2 Flow Rate Last 24 Hr 97.3 F-98.9 F 72-99 16-29 103-147/73-104 86-100 BiPAP-Heated High Flow Nasal Ca 45-50 Intake and Output 07/19/22 07/20/22 07/20/22 19:59 03:59 11:59 Intake Total 1296 500 Output Total 1150 1550 400 Balance 146 -1550 100 Weight 132.903 kg Intake & Output: Intake & Output 07/19/22 07/20/22 07/20/22 19:59 03:59 11:59 Intake Total 1296 500 Output Total 1150 1550 400 Balance 146 -1550 100 Weight 132.903 kg Intake: Oral 1296 500 Output: Void Amount 1150 1550 400 Other: Meal Dinner Percent of Meal Consumed 100% Feeding Ability Independent Urine Appearance Clear Clear Urine Color Yellow Yellow Yellow Urine Odor Normal Normal Normal OBJ DATA Labs 07/20/22 05:37 07/20/22 05:37 Labs: Abnormal Lab Results 07/20/22 07/20/22 07/19/22 05:37 05:37 05:43 WBC 17.5 H Hgb Hct Immature Gran % (Auto) 4.6 H Neut % (Auto) Lymph % (Auto) Eagle # (Auto) 1.55 H Seg Neutrophils % Lymphocytes % Immature Gran # 0.81 H Absolute Neutrophils 12.29 H Nucleated RBCs RBC Morphology Hypochromasia ESR BUN 23 H 23 H Glucose 130 H 139 H GGT 60 H Lactate Dehydrogenase 510 H C-Reactive Protein 3.60 H Albumin/Globulin Ratio 0.9 L Triglycerides 07/19/22 07/18/22 07/18/22 05:43 05:30 05:30 WBC 16.7 H 20.7 H Hgb 10.9 L 10.8 L Hct 33.9 L Immature Gran % (Auto) 2.9 H 1.5 H Neut % (Auto) 82.4 H Lymph % (Auto) 13.9 L 8.2 L Eagle # (Auto) 1.54 H 1.59 H Seg Neutrophils % Lymphocytes % Immature Gran # 0.49 H 0.30 H Absolute Neutrophils 12.26 H 17.01 H Nucleated RBCs RBC Morphology Hypochromasia ESR 77 H BUN 23 H Glucose 159 H GGT 48 H Lactate Dehydrogenase 598 H C-Reactive Protein Albumin/Globulin Ratio 0.9 L Triglycerides 169 H 07/17/22 05:37 WBC Hgb Hct Immature Gran % (Auto) Neut % (Auto) Lymph % (Auto) Eagle # (Auto) Seg Neutrophils % 89 H Lymphocytes % 7 L Immature Gran # Absolute Neutrophils Nucleated RBCs 1 H RBC Morphology Abnormal A Hypochromasia Occ A ESR BUN Glucose GGT Lactate Dehydrogenase C-Reactive Protein Albumin/Globulin Ratio Triglycerides Meds: Medications Acetaminophen (Acetaminophen 325 Mg Tablet) 650 mg PO Q6HP PRN; Protocol PRN Reason: Per Pain Protocol/Fever > 101 Hydrocodone Bitart/Acetaminophen (Hydrocodone/Apap 5/325mg Tablet) 1 - 2 tab PO Q4HP PRN PRN Reason: PAIN LEVEL 3-6 Last Admin: 07/20/22 05:21 Dose: 2 tab Albuterol/Ipratropium (Ipratropium/Albuterol 3 Ml Ampul.Neb) 3 ml NEB Q4HP PRN PRN Reason: Shortness Of Breath Last Admin: 07/20/22 03:14 Dose: 3 ml Albuterol/Ipratropium (Ipratropium/Albuterol 3 Ml Ampul.Neb) 3 ml NEB Q8H [facility] Last Admin: 07/20/22 00:49 Dose: 3 ml Benzonatate (Benzonatate 100 Mg Capsule) 200 mg PO TIDP PRN PRN Reason: Cough Last Admin: 07/19/22 17:50 Dose: 200 mg Budesonide (Budesonide 0.5 Mg/2 Ml Ampul.Neb) 0.5 mg NEB Q12 [facility] Last Admin: 07/19/22 20:19 Dose: 0.5 mg Buspirone HCl (Buspirone 5 Mg Tablet) 10 mg PO TID [facility] Last Admin: 07/19/22 21:19 Dose: 10 mg Docusate Sodium (Docusate Sodium 100 Mg Capsule) 100 mg PO BID [facility] Last Admin: 07/19/22 21:19 Dose: 100 mg Enoxaparin Sodium (Enoxaparin 40 Mg/0.4 Ml Syringe) 40 mg SQ BID [facility] Last Admin: 07/19/22 21:22 Dose: 40 mg Famotidine (Famotidine 20 Mg Tablet) 20 mg PO BID [facility] Last Admin: 07/19/22 21:21 Dose: 20 mg Furosemide (Furosemide 20 Mg Tablet) 20 mg PO DAILY [facility] Last Admin: 07/19/22 08:33 Dose: 20 mg Guaifenesin/Codeine Phosphate (Guaifenesin/Codeine 10 Ml Udc) 10 ml PO Q4HP PRN PRN Reason: Cough Last Admin: 07/20/22 07:41 Dose: 10 ml Ceftriaxone Sodium 2 gm/ (Dextrose) 50 mls @ 100 mls/hr IV Q24H [facility]; Protocol Last Infusion: 07/19/22 10:38 Dose: Infused Potassium Chloride 40 meq/ (Dextrose) 520 mls @ 130 mls/hr IV UD PRN PRN Reason: Potassium < 3 Magnesium Sulfate (Magnesium Sulfate) 2 gm in 50 mls @ 50 mls/hr IV UD PRN PRN Reason: Magnesium </= 1.6 Isosorbide Dinitrate (Isosorbide Dinitrate 10 Mg Tablet) 5 mg PO TIDAC [facility] Last Admin: 07/20/22 07:20 Dose: 5 mg Labetalol HCl (Labetalol 5 Mg/Ml Ml) 0 mg IV Q2HP PRN PRN Reason: Hypertension Lactulose (Lactulose 20 Gm/30 Ml Oral.Saira) 20 gm PO DAILYP PRN PRN Reason: Constipation Lamotrigine (Lamotrigine 100 Mg Tablet) 50 mg PO DAILY [facility] Last Admin: 07/19/22 08:32 Dose: 50 mg Lamotrigine (Lamotrigine 100 Mg Tablet) 150 mg PO HS [facility] Last Admin: 07/19/22 21:21 Dose: 150 mg Levothyroxine Sodium (Levothyroxine 100 Mcg Tablet) 100 mcg PO QAMAC [facility] Last Admin: 07/20/22 07:20 Dose: 100 mcg Lorazepam (Lorazepam 2 Mg/Ml Vial) 0.5 mg IV Q6HP PRN PRN Reason: ANXIETY/SEDATION Last Admin: 07/19/22 22:27 Dose: 0.5 mg Methylprednisolone Sodium Succinate (Methylprednisolone Sod Succ 40 Mg/Ml Vial) 40 mg IV Q8 [facility] Last Admin: 07/20/22 05:20 Dose: 40 mg Metoclopramide HCl (Metoclopramide 10 Mg/2 Ml Vial) 10 mg IV Q6HP PRN PRN Reason: Nausea And Vomiting Montelukast Sodium (Montelukast 10 Mg Tablet) 10 mg PO QPM [facility] Last Admin: 07/19/22 21:21 Dose: 10 mg Morphine Sulfate (Morphine 4 Mg/Ml Vial) 0 mg IV Q3HP PRN PRN Reason: Pain Last Admin: 07/20/22 07:41 Dose: 2 mg Nortriptyline HCl (Nortriptyline 25 Mg Capsule) 75 mg PO [facility] Last Admin: 07/19/22 21:20 Dose: 75 mg Ondansetron HCl (Ondansetron 4 Mg/2 Ml Vial) 4 mg IV Q4HP PRN PRN Reason: Nausea And Vomiting Linaclotide [Linzess (] 290 Mcg Capsule) 1 dose PO DAILYP PRN PRN Reason: Constipation Last Admin: 07/16/22 14:00 Dose: 1 dose Polyethylene Glycol (Polyethylene Glycol 3350 17 Gm Packet) 17 gm PO DAILYP PRN PRN Reason: Constipation Potassium Chloride (Potassium Chloride 20 Meq Tablet) 40 meq PO UD PRN PRN Reason: Potssium is 3-3.5 Potassium Chloride (Potassium Chloride 20 Meq Tablet) 40 meq PO UD PRN PRN Reason: Potassium < 3 Senna (Sennosides 1 Tablet) 2 tab PO DAILYP PRN PRN Reason: Constipation Last Admin: 07/15/22 21:33 Dose: 2 tab Sodium Chloride (0.9 % Sodium Chloride 10 Ml Syringe) 10 ml IV Q8 [facility] Last Admin: 07/20/22 05:21 Dose: 10 ml Tizanidine HCl (Tizanidine 4 Mg Tablet) 4 mg PO Q6HP PRN PRN Reason: Spasms Trazodone HCl (Trazodone Hcl 100 Mg Tablet) 125 mg PO [facility] Last Admin: 07/19/22 21:20 Dose: 125 mg Venlafaxine HCl (Venlafaxine 37.5 Mg Tab.Er.24h) 37.5 mg PO QDAY [facility] Last Admin: 07/19/22 08:32 Dose: 37.5 mg Venlafaxine HCl (Venlafaxine 75 Mg Cap.Xl.24h) 75 mg PO QDAY [facility] Last Admin: 07/19/22 08:32 Dose: 75 mg A/P Narrative A/P Narrative: A: *Acute hypoxic respiratory failure w/ARDS: -on bipap qhs and vapotherm during day at 45lpm/45% -good diuresis with lasix but no significant improvement -poor reserves, easily desats with coughing *PNA, ?atypical bacterial vs Viral: -ESR 81, crp worsned but now improving -strep/flu/covid/rvp neg *Sepsis w/lactic acidosis(improved): 2/2 above -leukocytosis persistent, no bandemia, cont to monitor *Encephalopathy: resolved *COPD/Pulmonary fibrosis (on 4L@night with cpap): with likely exacerbation -Pt did have Covid several years ago and was in hospital for 10 days, 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 ann *YAMILEX on cpap(4L O2@night only) *Morbid obesity: BMI 47 *HTN: soft since admit *Depression/anxiety/fibromyalgia: *Chronic pain: On opioids *GERD: *Anemia: *Recent Left shoulder Sx: on by Dr. Sykes *Constipation: improved P: -Rocephin/azithromycin, pending SC/BC, mrsa screen neg -myco pending -Patient does not feel she can prone with her shoulder but will position as close as possible, oob to chair, mobilization -f/u inflammatory markers -corticosteroids(Wean) -home cpap qhs or prn bipap -IS/acapella, nebs,RT -wean O2 as able -Bowel regimen -hold home ACEI for initially soft BP, restart as needed -cont home lasix, prn IV -cont psych meds -PT/OT -CM for placement needs -ppx: Lovenox obesity dosing / home H2 Time Spent With Patient Time: Total time spent is greater than 50% in coordination of care (as documented) at patient's floor/unit and/or counseling patient: Critical Care Time: Yes Total Critical Care Time: 50
[2022-07-20] MEDS: BUDESONIDE 0.5 MG/2 ML AMPUL.NEB NEB SCH ×2 (08:38→21:32)
[2022-07-20] MEDS: DOCUSATE SODIUM 100 MG CAPSULE PO SCH ×2 (08:57→21:10)
[2022-07-20] MEDS: busPIRone 5 MG TABLET PO SCH ×3 (08:58→21:12)
[2022-07-20] MEDS: lamoTRIgine 100 MG TABLET PO SCH ×2 (08:58→21:11)
[2022-07-20] MEDS: VENLAFAXINE 75 MG CAP.XL.24H PO SCH (08:59)
[2022-07-20] MEDS: ENOXAPARIN 40 MG/0.4 ML SYRINGE SQ SCH ×2 (08:59→21:11)
[2022-07-20] MEDS: FUROSEMIDE 20 MG TABLET PO SCH (08:59)
[2022-07-20] MEDS: VENLAFAXINE 37.5 MG TAB.ER.24H PO SCH (08:59)
[2022-07-20] MEDS: FAMOTIDINE 20 MG TABLET PO SCH ×2 (08:59→21:12)
--- NOTE | 2022-07-20 10:12 | XRay Report ---
HISTORY: Hypoxia, follow-up pneumonia, ARDS FINDINGS: Moderate generalized alveolar infiltrates are present throughout both lungs. This has remained relatively stable since 07/18/21. Lung volumes are normal. There is no pleural effusion. Heart size is upper limits of normal. Distal end of the right clavicle is surgically absent. IMPRESSION: Stable diffuse bilateral infiltrates Interpreted and Authenticated by: Arnoldo Holland 07/20/22
[2022-07-20] MEDS: cefTRIAXone 2 GM in DEXTROSE 5% IN WATER 50 ML IV SCH (10:40)
[2022-07-20] MEDS: LORazepam 2 MG/ML VIAL IV PRN ×2 (13:56→21:36)
[2022-07-20] MEDS: NORTRIPTYLINE 25 MG CAPSULE PO SCH (21:11)
[2022-07-20] MEDS: MONTELUKAST 10 MG TABLET PO SCH (21:12)
[2022-07-20] MEDS: traZODone HCL 100 MG TABLET PO SCH (21:12)
[2022-07-21] MEDS: IPRATROPIUM/ALBUTEROL 3 ML AMPUL.NEB NEB SCH ×3 (00:19→16:10)
[2022-07-21] MEDS: HYDROcodone/APAP 5/325MG TABLET PO PRN ×3 (04:17→17:59)
[2022-07-21] MEDS: IPRATROPIUM/ALBUTEROL 3 ML AMPUL.NEB NEB PRN (04:23)
[2022-07-21] MEDS: 0.9 % SODIUM CHLORIDE 10 ML SYRINGE IV SCH ×3 (05:42→21:18)
[2022-07-21 06:33] LABS: Basophils # (Auto) 0.06 K/mcL (0.00-0.30); Basophils % (Auto) 0.3 % (0.0-2.0); Eosinophils # (Auto) 0.48 K/mcL (0.00-0.70); Eosinophils % (Auto) 2.7 % (0.0-7.0); Hematocrit 34.1 % (34.1-44.9); Hemoglobin 10.9 g/dL (11.2-15.7); Lymphocytes # (Auto) 3.11 K/mcL (1.50-4.80); Lymphocytes % (Auto) 17.4 % (15.5-49.0); Mean Cell Volume 90.2 fL (80.0-100.0); Mean Platelet Volume 9.7 fL (8.8-12.5); Monocytes # (Auto) 1.15 K/mcL (0.10-0.90); Monocytes % (Auto) 6.4 % (1.0-12.0); Neutrophils % (Auto) 68.1 % (38.0-78.0); Platelet Count 291 K/mcL (140-440); RBC 3.78 M/mcL (3.59-5.38); Red Cell Distribution Width 13.8 % (11.5-14.5); WBC 17.9 K/mcL (4.5-11.0)
[2022-07-21 06:47] LABS: Erythrocyte Sedimentation Rate 60 mm/hr (0-20)
[2022-07-21 06:53] LABS: Blood Urea Nitrogen 22 mg/dL (6-20); Calcium 8.9 mg/dL (8.6-10.4); Carbon Dioxide 29 mmol/L (22-30); Chloride 100 mmol/L (96-108); Glomerular Filtration Rate 87; Glucose 137 mg/dL (70-105)
--- NOTE | 2022-07-21 07:42 | Internal Med Progress Note ---
SUBJECTIVE Subjective Patient information: Note initiated : 07/21/22 at 7:39 am Service Date, if different from initiated Date: [] Patient: Manuela Feliciano a 47 y/o F admitted on 07/15/22 for pneumonia/hypoxic pneumonia. Chief Complaint: [] Interval history: History of present illness: Ms. Feliciano is a 47 year old F Presents with shortness of breath and worsening cough. Patient states over the past couple days she has had developing increased shortness of breath and cough. Still denies ago she says she does not feel quite right but can explain in any detail. The next day she started developing gradually increasing shortness of breath. Her cough was not particularly prominent at that time as she does have a chronic cough. However the next morning her cough significantly increased in severity. Her shortness of breath also significantly increased. When she stood up she got dizzy. She is also felt delirious. At one point she did use her CPAP during the day which helped her to feel better and she was able to sleep some with it. She typically only wears oxygen 4 L at night with her CPAP but does not typically wear during the day. Patient denies fevers But has been sweaty. She says she has had a panic attack as well. Patient did have shoulder surgery for 5 days ago on the . Consideration for PE was discussed in the ED with the patient. Patient refused any contrast given her allergy, she is aware of this being in the differential. However, CT chest is significant for pulmonary diffuse parenchymal involvement indicating an alternate explanation, pulmonary aa are normal caliber and she denies unilateral calf pain or swelling. No sudden onset of dyspnea. She was remained active since surgery, as active as she was before surgery. She has chronic pain everywhere she says including fibromyalgia and she takes hydrocodone's. She complains of constipation. In the ER she had a leukocytosis of 16. CT with mosaic lung parenchyma bilaterally and small patchy infiltrate in the right lung. Patient started on IV antibiotics in the ED. Patient on 10 L oxy mask with sats in the mid 90s in the ED. Originally she was hypoxic in the low 80s on room air in the ED. 07/16 Patient required BiPAP overnight. Patient states she does feel like she is breathing a little easier and her cough is improving. But again noted needed increasing oxygen support and poor reserve when off. 07/17 Patient says her cough is starting to loosen up and able to cough up more phlegm. Still awaiting sputum culture. On BiPAP overnight. Goal is to get her down to CPAP at night as she is on at home with oxygen and then room air during the day while she is awake. Leukocytosis worsened but likely secondary to steroids started. Awaiting manual differential. Patient denies shortness of breath at rest. And improving when she is getting up and moving. 07/18 Patient states her breathing is not too bad until she has coughing fits. Cough ing fits are also causing her chest pain and rib pain. She was on BiPAP overnight but not as long. She is on Vapotherm at 45 L/min at 60 FiO2. Leukocytosis mildly worse but patient just started on steroids we will continue to monitor, no bandemia. 07/19 Patient states she is having less coughing fits which really drop her oxygen saturations and take some time to come out. Denies any shortness of breath while in bed at rest. She is on 45 L/min at 55 FiO2 and will start titrating down her FiO2 again. Leukocytosis present but starting to improve. CRP which is elevating starting to improve. Excellent urine output yesterday but did not make a significant improvement in her breathing status. 07/20 Patient making slow progress. Coughing frequency decreasing. She did have a coughing fit middle the night which caused her desat for a while but she came back up. Follow-up chest x-ray today. Down to 45 L/min and 40% FiO2. Persistent leukocytosis. Patient does not think she can prone with her shoulder but will Position as close as possible. 07/21 Patient continues to gradually make progress. Patient on CPAP last night. On high flow nasal cannula 7 L this morning. Continues to have occasional coughing fit with desaturations but seems to be less severe. Leukocytosis persistent but no bandemia. Continue pulmonary toilet and nebs Review of Systems: Pertinent positives as above. Denies headache/fever/chills/nausea/vomiting/chest or abdominal pain/diarrhea. PHYSICAL EXAM General: Alert, Awake, No acute Distress, obese Eyes/N/T: EOMI, no scleral icterus, Head/Neck: neck supple, full ROM, CV: RRR, No murmurs, Pulm: squeak and course rales improving, no wheezing Abd: soft, nontender, +BS x4 Ext: no clubbing/cyanosis, trace b/l LE edema, nontender Neuro: Alert, no focal deficits, moves all extremities, sensations intact b/l upper/lower Psychiatric: Skin: warm/dry, normal color Constitutional Vitals: Vital Signs Temp Pulse Resp BP Pulse Ox O2 Del Method O2 Flow Rate 96.8 F L 72 17 121/80 96 CPAP 12 07/21/22 04:01 07/21/22 06:01 07/21/22 06:01 07/21/22 06:01 07/21/22 06:01 07/21/22 06:01 07/20/22 22:00 Period Temp Pulse Resp BP Sys/Wolf Pulse Ox O2 Del Method O2 Flow Rate Last 24 Hr 96.8 F-98.6 F 72-103 17-27 118-140/77-104 88-100 CPAP-High Flow Nasal Cannula, Bubble Humidifier 10-45 Intake and Output 07/20/22 07/21/22 07/21/22 19:59 03:59 11:59 Intake Total 1660 350 350 Output Total 6756 626 4191 Balance 260 50 -650 Weight 131.995 kg Intake & Output: Intake & Output 07/20/22 07/21/22 07/21/22 19:59 03:59 11:59 Intake Total 1660 350 350 Output Total 7537 844 4793 Balance 260 50 -650 Weight 131.995 kg Intake: Oral 1660 350 350 Output: Void Amount 1296 238 4328 Other: Meal Dinner Percent of Meal Consumed 100% Feeding Ability Independent Urine Appearance Clear Clear Urine Color Dark Yellow Yellow Yellow Urine Odor Normal Stool Size Large Stool Color Brown Stool Consistency Soft OBJ DATA Labs 07/21/22 05:42 07/21/22 05:42 Labs: Abnormal Lab Results 07/21/22 07/21/22 07/20/22 05:42 05:42 05:37 WBC 17.9 H Hgb 10.9 L Immature Gran % (Auto) 5.1 H Lymph % (Auto) [place] # (Auto) 1.15 H Immature Gran # 0.92 H Absolute Neutrophils 12.16 H ESR 60 H Anion Gap 7.0 L BUN 22 H 23 H Glucose 137 H 130 H GGT Lactate Dehydrogenase C-Reactive Protein Albumin/Globulin Ratio 07/20/22 07/19/22 07/19/22 05:37 05:43 05:43 WBC 17.5 H 16.7 H Hgb 10.9 L Immature Gran % (Auto) 4.6 H 2.9 H Lymph % (Auto) 13.9 L [place] # (Auto) 1.55 H 1.54 H Immature Gran # 0.81 H 0.49 H Absolute Neutrophils 12.29 H 12.26 H ESR 77 H Anion Gap BUN 23 H Glucose 139 H GGT 60 H Lactate Dehydrogenase 510 H C-Reactive Protein 3.60 H Albumin/Globulin Ratio 0.9 L Meds: Medications Acetaminophen (Acetaminophen 325 Mg Tablet) 650 mg PO Q6HP PRN; Protocol PRN Reason: Per Pain Protocol/Fever > 101 Hydrocodone Bitart/Acetaminophen (Hydrocodone/Apap 5/325mg Tablet) 1 - 2 tab PO Q4HP PRN PRN Reason: PAIN LEVEL 3-6 Last Admin: 07/21/22 04:17 Dose: 2 tab Albuterol/Ipratropium (Ipratropium/Albuterol 3 Ml Ampul.Neb) 3 ml NEB Q4HP PRN PRN Reason: Shortness Of Breath Last Admin: 07/21/22 04:23 Dose: 3 ml Albuterol/Ipratropium (Ipratropium/Albuterol 3 Ml Ampul.Neb) 3 ml NEB Q8H [facility] Last Admin: 07/21/22 00:19 Dose: 3 ml Benzonatate (Benzonatate 100 Mg Capsule) 200 mg PO TIDP PRN PRN Reason: Cough Last Admin: 07/19/22 17:50 Dose: 200 mg Budesonide (Budesonide 0.5 Mg/2 Ml Ampul.Neb) 0.5 mg NEB Q12 [facility] Last Admin: 07/20/22 21:32 Dose: 0.5 mg Buspirone HCl (Buspirone 5 Mg Tablet) 10 mg PO TID [facility] Last Admin: 07/20/22 21:12 Dose: 10 mg Docusate Sodium (Docusate Sodium 100 Mg Capsule) 100 mg PO BID [facility] Last Admin: 07/20/22 21:10 Dose: 100 mg Enoxaparin Sodium (Enoxaparin 40 Mg/0.4 Ml Syringe) 40 mg SQ BID [facility] Last Admin: 07/20/22 21:11 Dose: 40 mg Famotidine (Famotidine 20 Mg Tablet) 20 mg PO BID [facility] Last Admin: 07/20/22 21:12 Dose: 20 mg Furosemide (Furosemide 20 Mg Tablet) 20 mg PO DAILY [facility] Last Admin: 07/20/22 08:59 Dose: 20 mg Guaifenesin/Codeine Phosphate (Guaifenesin/Codeine 10 Ml Udc) 10 ml PO Q4HP PRN PRN Reason: Cough Last Admin: 07/20/22 07:41 Dose: 10 ml Ceftriaxone Sodium 2 gm/ (Dextrose) 50 mls @ 100 mls/hr IV Q24H [facility]; Protocol Last Infusion: 07/20/22 11:22 Dose: Infused Potassium Chloride 40 meq/ (Dextrose) 520 mls @ 130 mls/hr IV UD PRN PRN Reason: Potassium < 3 Magnesium Sulfate (Magnesium Sulfate) 2 gm in 50 mls @ 50 mls/hr IV UD PRN PRN Reason: Magnesium </= 1.6 Isosorbide Dinitrate (Isosorbide Dinitrate 10 Mg Tablet) 5 mg PO TIDAC [facility] Last Admin: 07/20/22 17:47 Dose: 5 mg Labetalol HCl (Labetalol 5 Mg/Ml Ml) 0 mg IV Q2HP PRN PRN Reason: Hypertension Lactulose (Lactulose 20 Gm/30 Ml Oral.Saira) 20 gm PO DAILYP PRN PRN Reason: Constipation Lamotrigine (Lamotrigine 100 Mg Tablet) 50 mg PO DAILY [facility] Last Admin: 07/20/22 08:58 Dose: 50 mg Lamotrigine (Lamotrigine 100 Mg Tablet) 150 mg PO HS [facility] Last Admin: 07/20/22 21:11 Dose: 150 mg Levothyroxine Sodium (Levothyroxine 100 Mcg Tablet) 100 mcg PO QAMAC [facility] Last Admin: 07/20/22 07:20 Dose: 100 mcg Lorazepam (Lorazepam 2 Mg/Ml Vial) 0.5 mg IV Q6HP PRN PRN Reason: ANXIETY/SEDATION Last Admin: 07/20/22 21:36 Dose: 0.5 mg Methylprednisolone Sodium Succinate (Methylprednisolone Sod Succ 40 Mg/Ml Vial) 40 mg IV BID [facility] Last Admin: 07/20/22 21:12 Dose: 40 mg Metoclopramide HCl (Metoclopramide 10 Mg/2 Ml Vial) 10 mg IV Q6HP PRN PRN Reason: Nausea And Vomiting Montelukast Sodium (Montelukast 10 Mg Tablet) 10 mg PO QPM [facility] Last Admin: 07/20/22 21:12 Dose: 10 mg Morphine Sulfate (Morphine 4 Mg/Ml Vial) 0 mg IV Q3HP PRN PRN Reason: Pain Last Admin: 07/20/22 07:41 Dose: 2 mg Nortriptyline HCl (Nortriptyline 25 Mg Capsule) 75 mg PO [facility] Last Admin: 07/20/22 21:11 Dose: 75 mg Ondansetron HCl (Ondansetron 4 Mg/2 Ml Vial) 4 mg IV Q4HP PRN PRN Reason: Nausea And Vomiting Linaclotide [Linzess (] 290 Mcg Capsule) 1 dose PO DAILYP PRN PRN Reason: Constipation Last Admin: 07/16/22 14:00 Dose: 1 dose Polyethylene Glycol (Polyethylene Glycol 3350 17 Gm Packet) 17 gm PO DAILYP PRN PRN Reason: Constipation Potassium Chloride (Potassium Chloride 20 Meq Tablet) 40 meq PO UD PRN PRN Reason: Potssium is 3-3.5 Potassium Chloride (Potassium Chloride 20 Meq Tablet) 40 meq PO UD PRN PRN Reason: Potassium < 3 Senna (Sennosides 1 Tablet) 2 tab PO DAILYP PRN PRN Reason: Constipation Last Admin: 07/15/22 21:33 Dose: 2 tab Sodium Chloride (0.9 % Sodium Chloride 10 Ml Syringe) 10 ml IV Q8 [facility] Last Admin: 07/21/22 05:42 Dose: 10 ml Tizanidine HCl (Tizanidine 4 Mg Tablet) 4 mg PO Q6HP PRN PRN Reason: Spasms Trazodone HCl (Trazodone Hcl 100 Mg Tablet) 125 mg PO [facility] Last Admin: 07/20/22 21:12 Dose: 125 mg Venlafaxine HCl (Venlafaxine 37.5 Mg Tab.Er.24h) 37.5 mg PO QDAY [facility] Last Admin: 07/20/22 08:59 Dose: 37.5 mg Venlafaxine HCl (Venlafaxine 75 Mg Cap.Xl.24h) 75 mg PO QDAY [facility] Last Admin: 07/20/22 08:59 Dose: 75 mg A/P Narrative A/P Narrative: A: *Acute hypoxic respiratory failure w/ARDS: -on cpap o/n, now on HFNC at 7L -good diuresis with lasix but did not seem to make much difference in course -poor reserves, easily desats with coughing -inflammatory markers improving *PNA, ?atypical bacterial vs Viral: -ESR 81, crp worsned but now improving -strep/flu/covid/rvp neg *Sepsis w/lactic acidosis(improved): 2/2 above -leukocytosis persistent, no bandemia, cont to monitor as decrease steroids *Encephalopathy: resolved *COPD/Pulmonary fibrosis (on 4L@night with cpap): with likely exacerbation -Pt did have Covid several years ago and was in hospital for 10 days, 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 ann *YAMILEX on cpap(4L O2@night only) *Morbid obesity: BMI 47 *HTN: soft since admit *Depression/anxiety/fibromyalgia: *Chronic pain: On opioids *GERD: *Anemia: *Recent Left shoulder Sx: on by Dr. Sykes *Constipation: improved P: -Rocephin/azithromycin, pending SC/BC, mrsa screen neg -myco pending -Patient does not feel she can prone with her shoulder but will position as close as possible, oob to chair, mobilization -f/u inflammatory markers -corticosteroids(Wean) -home cpap qhs or prn bipap -IS/acapella, nebs,RT -wean O2 as able -Bowel regimen -hold home ACEI for initially soft BP, restart as needed -cont home lasix, prn IV -cont psych meds -PT/OT -CM for placement needs -ppx: Lovenox obesity dosing / home H2 Time Spent With Patient Time: Total time spent is greater than 50% in coordination of care (as documented) at patient's floor/unit and/or counseling patient: Subsequent: Total time with patient: 50 - 65 Minutes
[2022-07-21] MEDS: LEVOTHYROXINE 100 MCG TABLET PO SCH (07:47)
[2022-07-21] MEDS: ISOSORBIDE DINITRATE 10 MG TABLET PO SCH ×3 (07:47→17:26)
[2022-07-21] MEDS: methylPREDNISolone SOD SUCC 40 MG/ML VIAL IV SCH ×2 (08:39→21:16)
[2022-07-21] MEDS: DOCUSATE SODIUM 100 MG CAPSULE PO SCH ×2 (08:40→21:17)
[2022-07-21] MEDS: FUROSEMIDE 20 MG TABLET PO SCH (08:40)
[2022-07-21] MEDS: busPIRone 5 MG TABLET PO SCH ×3 (08:40→21:17)
[2022-07-21] MEDS: VENLAFAXINE 75 MG CAP.XL.24H PO SCH (08:40)
[2022-07-21] MEDS: FAMOTIDINE 20 MG TABLET PO SCH ×2 (08:40→21:17)
[2022-07-21] MEDS: lamoTRIgine 100 MG TABLET PO SCH ×2 (08:40→21:18)
[2022-07-21] MEDS: VENLAFAXINE 37.5 MG TAB.ER.24H PO SCH (08:40)
[2022-07-21] MEDS: cefTRIAXone 2 GM in DEXTROSE 5% IN WATER 50 ML IV SCH (08:41)
[2022-07-21] MEDS: ENOXAPARIN 40 MG/0.4 ML SYRINGE SQ SCH ×2 (08:41→21:16)
[2022-07-21] MEDS: BUDESONIDE 0.5 MG/2 ML AMPUL.NEB NEB SCH ×2 (08:45→21:02)
[2022-07-21 08:55] LABS: Band Neutrophils % 1 % (0-10); Eosinophils % (Manual) 2 % (0-7); Lymphocytes % 19 % (15-49); Monocytes % (Manual) 4 % (1-12); Platelet Estimate NORMAL (Normal); RBC Morphology NORMAL (Normal); Reactive Lymphocytes 2 % (0-2); Segmented Neutrophils % 72 % (38-78)
[2022-07-21] MEDS: guaiFENesin/CODEINE 10 ML UDC PO PRN ×2 (09:12→15:58)
[2022-07-21] MEDS: BENZONATATE 100 MG CAPSULE PO PRN (11:33)
[2022-07-21] MEDS: morphine 4 MG/ML VIAL IV PRN ×2 (11:34→21:35)
[2022-07-21] MEDS: NORTRIPTYLINE 25 MG CAPSULE PO SCH (21:17)
[2022-07-21] MEDS: MONTELUKAST 10 MG TABLET PO SCH (21:17)
[2022-07-21] MEDS: traZODone HCL 100 MG TABLET PO SCH (21:18)
[2022-07-22] MEDS: IPRATROPIUM/ALBUTEROL 3 ML AMPUL.NEB NEB SCH ×4 (00:15→21:29)
[2022-07-22] MEDS: guaiFENesin/CODEINE 10 ML UDC PO PRN ×4 (02:48→15:18)
[2022-07-22] MEDS: morphine 4 MG/ML VIAL IV PRN ×3 (02:48→19:28)
[2022-07-22] MEDS: 0.9 % SODIUM CHLORIDE 10 ML SYRINGE IV SCH ×3 (05:23→21:08)
[2022-07-22 06:43] LABS: Basophils % (Auto) 0.5 % (0.0-2.0); Eosinophils # (Auto) 0.28 K/mcL (0.00-0.70); Eosinophils % (Auto) 1.5 % (0.0-7.0); Hematocrit 35.8 % (34.1-44.9); Hemoglobin 11.3 g/dL (11.2-15.7); Lymphocytes # (Auto) 3.08 K/mcL (1.50-4.80); Lymphocytes % (Auto) 16.6 % (15.5-49.0); Mean Cell Volume 90.9 fL (80.0-100.0); Mean Corpuscular HGB Conc 31.6 g/dL (31.0-36.0); Monocytes % (Auto) 5.9 % (1.0-12.0); Neutrophils % (Auto) 69.9 % (38.0-78.0); Platelet Count 318 K/mcL (140-440); RBC 3.94 M/mcL (3.59-5.38); Red Cell Distribution Width 13.7 % (11.5-14.5); WBC 18.6 K/mcL (4.5-11.0)
[2022-07-22] MEDS: ISOSORBIDE DINITRATE 10 MG TABLET PO SCH ×3 (07:09→17:09)
[2022-07-22] MEDS: LEVOTHYROXINE 100 MCG TABLET PO SCH (07:09)
[2022-07-22] MEDS: HYDROcodone/APAP 5/325MG TABLET PO PRN ×2 (07:09→15:40)
[2022-07-22 07:11] LABS: ALT/SGPT 24 U/L (<40); AST/SGOT 27 U/L (<32); Albumin 3.1 gm/dL (3.2-5.2); Alkaline Phosphatase 106 U/L (39-117); Bilirubin,Total 0.2 mg/dL (0.1-1.0); Blood Urea Nitrogen 20 mg/dL (6-20); Calcium 8.9 mg/dL (8.6-10.4); Carbon Dioxide 29 mmol/L (22-30); Chloride 99 mmol/L (96-108); Globulin 3.1 gm/dL (2.2-3.7); Glomerular Filtration Rate 87; Glucose 131 mg/dL (70-105)
[2022-07-22] MEDS: BUDESONIDE 0.5 MG/2 ML AMPUL.NEB NEB SCH ×2 (07:30→21:28)
[2022-07-22] MEDS: DOCUSATE SODIUM 100 MG CAPSULE PO SCH ×2 (07:49→20:52)
[2022-07-22] MEDS: ENOXAPARIN 40 MG/0.4 ML SYRINGE SQ SCH ×2 (07:49→20:50)
[2022-07-22] MEDS: methylPREDNISolone SOD SUCC 40 MG/ML VIAL IV SCH (07:49)
[2022-07-22] MEDS: cefTRIAXone 2 GM in DEXTROSE 5% IN WATER 50 ML IV SCH (07:49)
[2022-07-22] MEDS: FAMOTIDINE 20 MG TABLET PO SCH ×2 (07:49→20:51)
[2022-07-22] MEDS: LISINOPRIL 20 MG TABLET PO SCH (07:49)
[2022-07-22] MEDS: FUROSEMIDE 20 MG TABLET PO SCH (07:55)
[2022-07-22] MEDS: busPIRone 5 MG TABLET PO SCH ×3 (08:05→20:51)
[2022-07-22] MEDS: VENLAFAXINE 75 MG CAP.XL.24H PO SCH (08:05)
[2022-07-22] MEDS: VENLAFAXINE 37.5 MG TAB.ER.24H PO SCH (08:05)
[2022-07-22] MEDS: lamoTRIgine 100 MG TABLET PO SCH ×2 (08:06→20:51)
[2022-07-22] MEDS: BENZONATATE 100 MG CAPSULE PO PRN ×2 (09:45→13:15)
--- NOTE | 2022-07-22 10:59 | Internal Med Progress Note ---
SUBJECTIVE Subjective Patient information: Note initiated : 07/22/22 at 10:49 am Service Date, if different from initiated Date: [] Patient: Manuela Feliciano 47 y/o F admitted on 07/15/22 for pneumonia/hypoxic pneumonia. Chief Complaint: [] Interval history: Ms. Feliciano is a 47 year old F Presents with shortness of breath and worsening cough. Patient states over the past couple days she has had developing increased shortness of breath and cough. Still denies ago she says she does not feel quite right but can explain in any detail. The next day she started developing gradually increasing shortness of breath. Her cough was not particularly prominent at that time as she does have a chronic cough. However the next morning her cough significantly increased in severity. Her shortness of breath also significantly increased. When she stood up she got dizzy. She is also felt delirious. At one point she did use her CPAP during the day which helped her to feel better and she was able to sleep some with it. She typically only wears oxygen 4 L at night with her CPAP but does not typically wear during the day. Patient denies fevers But has been sweaty. She says she has had a panic attack as well. Patient did have shoulder surgery for 5 days ago on the . Consideration for PE was discussed in the ED with the patient. Patient refused any contrast given her allergy, she is aware of this being in the differential. However, CT chest is significant for pulmonary diffuse parenchymal involvement indicating an alternate explanation, pulmonary aa are normal caliber and she denies unilateral calf pain or swelling. No sudden onset of dyspnea. She was remained active since surgery, as active as she was before surgery. She has chronic pain everywhere she says including fibromyalgia and she takes hydrocodone's. She complains of constipation. In the ER she had a leukocytosis of 16. CT with mosaic lung parenchyma bilaterally and small patchy infiltrate in the right lung. Patient started on IV antibiotics in the ED. Patient on 10 L oxy mask with sats in the mid 90s in the ED. Originally she was hypoxic in the low 80s on room air in the ED. 07/16 Patient required BiPAP overnight. Patient states she does feel like she is br eathing a little easier and her cough is improving. But again noted needed increasing oxygen support and poor reserve when off. 07/17 Patient says her cough is starting to loosen up and able to cough up more phlegm. Still awaiting sputum culture. On BiPAP overnight. Goal is to get her down to CPAP at night as she is on at home with oxygen and then room air during the day while she is awake. Leukocytosis worsened but likely secondary to steroids started. Awaiting manual differential. Patient denies shortness of breath at rest. And improving when she is getting up and moving. 07/18 Patient states her breathing is not too bad until she has coughing fits. Coughing fits are also causing her chest pain and rib pain. She was on BiPAP overnight but not as long. She is on Vapotherm at 45 L/min at 60 FiO2. Leukocytosis mildly worse but patient just started on steroids we will continue to monitor, no bandemia. 07/19 Patient states she is having less coughing fits which really drop her oxygen saturations and take some time to come out. Denies any shortness of breath while in bed at rest. She is on 45 L/min at 55 FiO2 and will start titrating down her FiO2 again. Leukocytosis present but starting to improve. CRP which is elevating starting to improve. Excellent urine output yesterday but did not make a significant improvement in her breathing status. 07/20 Patient making slow progress. Coughing frequency decreasing. She did have a coughing fit middle the night which caused her desat for a while but she came back up. Follow-up chest x-ray today. Down to 45 L/min and 40% FiO2. Persistent leukocytosis. Patient does not think she can prone with her shoulder but will Position as close as possible. 07/21 Patient continues to gradually make progress. Patient on CPAP last night. On high flow nasal cannula 7 L this morning. Continues to have occasional coughing fit with desaturations but seems to be less severe. Leukocytosis persistent but no bandemia. Continue pulmonary toilet and nebs 07/22: Currently on 2L/min nasal cannula oxygen. All cultures no growth to date. Had an episode of dyspnea at around 330am. Patient is complaining of improving degree of shortness of breath right now. No cough or wheezing at the moment. No fever chills or diaphoresis right now. Transferred from inpatient PCU to [facility]. DC telemetry. DC antibiotics Rocephin and steroid Solu-Medrol. Continue bronchodilators. Continue to wean supplemental oxygen. Overall condition stable. Constitutional Vitals: Vital Signs Temp Pulse Resp BP Pulse Ox O2 Del Method O2 Flow Rate 36.5 C 72 17 121/74 97 High Flow Nasal Cannula, Bubble Humidifier 4 07/22/22 07:12 07/22/22 08:01 07/22/22 08:01 07/22/22 08:01 07/22/22 08:01 07/22/22 08:01 07/22/22 08:01 Period Temp Pulse Resp BP Sys/Wolf Pulse Ox O2 Del Method O2 Flow Rate Last 24 Hr 36.4 C-37.2 C 65-97 17-29 111-160/64-94 89-98 CPAP-High Flow Nasal Cannula, Bubble Humidifier 4-8 Intake and Output 07/21/22 07/22/22 07/22/22 19:59 03:59 11:59 Intake Total 1120 450 290 Output Total 3100 1300 1400 Balance -1979 -850 -1110 Weight 131.995 kg 131.088 kg Intake & Output: Intake & Output 07/21/22 07/22/22 07/22/22 19:59 03:59 11:59 Intake Total 1120 450 290 Output Total 3100 1300 1400 Balance -1979 -850 -1110 Weight 131.995 kg 131.088 kg Intake: IV 50 Rocephin 2 gm In Dextrose 5% in 50 Water 50 ml @ 100 mls/hr IV Q24H [facility] Rx#:[id number] Oral 1120 450 240 Output: Void Amount 3100 1300 1400 Other: Meal Dinner Breakfast Percent of Meal Consumed 100% 100% Feeding Ability Assist with Tray Set Up Urine Appearance Clear Clear Urine Color Dark Yellow Yellow Dark Yellow Urine Odor Normal Normal Head Head exam: Present atraumatic and normal inspection Eye Eye exam: Present normal appearance ENT ENT exam: Present mucous membranes moist, normal exam and normal external ear exam Additional comments: Nasal cannula in place Neck Neck exam: Present normal inspection Respiratory Respiratory exam: Present rhonchi Cardiovascular Cardiovascular exam: Present normal rate and rhythm GI/Abdominal GI/Abdominal exam: Present normal bowel sounds Extremities Exam Extremities exam: Present tenderness; Absent full ROM or normal inspection Additional comments: Left shoulder covered by surgical dressing. Sling in place Back Exam Back exam: Present normal inspection Neurological Exam Neurological exam: Present alert and oriented X3 Skin Skin exam: Present intact and warm OBJ DATA Labs 07/22/22 05:19 07/22/22 05:19 Labs: Abnormal Lab Results 07/22/22 07/22/22 07/21/22 05:19 05:19 05:42 WBC 18.6 H Hgb Immature Gran % (Auto) 5.6 H Cedar # (Auto) 1.10 H Immature Gran # 1.04 H Absolute Neutrophils 12.95 H ESR Anion Gap 7.0 L BUN 22 H Glucose 131 H 137 H Albumin 3.1 L 07/21/22 07/20/22 07/20/22 05:42 05:37 05:37 WBC 17.9 H 17.5 H Hgb 10.9 L Immature Gran % (Auto) 5.1 H 4.6 H Cedar # (Auto) 1.15 H 1.55 H Immature Gran # 0.92 H 0.81 H Absolute Neutrophils 12.16 H 12.29 H ESR 60 H Anion Gap BUN 23 H Glucose 130 H Albumin Meds: Medications Acetaminophen (Acetaminophen 325 Mg Tablet) 650 mg PO Q6HP PRN; Protocol PRN Reason: Per Pain Protocol/Fever > 101 Hydrocodone Bitart/Acetaminophen (Hydrocodone/Apap 5/325mg Tablet) 1 - 2 tab PO Q4HP PRN PRN Reason: PAIN LEVEL 3-6 Last Admin: 07/22/22 07:09 Dose: 2 tab Albuterol/Ipratropium (Ipratropium/Albuterol 3 Ml Ampul.Neb) 3 ml NEB Q4HP PRN PRN Reason: Shortness Of Breath Last Admin: 07/21/22 04:23 Dose: 3 ml Albuterol/Ipratropium (Ipratropium/Albuterol 3 Ml Ampul.Neb) 3 ml NEB Q8H [facility] Last Admin: 07/22/22 07:30 Dose: 3 ml Benzonatate (Benzonatate 100 Mg Capsule) 200 mg PO TIDP PRN PRN Reason: Cough Last Admin: 07/22/22 09:45 Dose: 200 mg Budesonide (Budesonide 0.5 Mg/2 Ml Ampul.Neb) 0.5 mg NEB Q12 [facility] Last Admin: 07/22/22 07:30 Dose: 0.5 mg Buspirone HCl (Buspirone 5 Mg Tablet) 10 mg PO TID [facility] Last Admin: 04/24/23 08:05 Dose: 10 mg Docusate Sodium (Docusate Sodium 100 Mg Capsule) 100 mg PO BID [facility] Last Admin: 07/22/22 07:49 Dose: 100 mg Enoxaparin Sodium (Enoxaparin 40 Mg/0.4 Ml Syringe) 40 mg SQ BID [facility] Last Admin: 07/22/22 07:49 Dose: 40 mg Famotidine (Famotidine 20 Mg Tablet) 20 mg PO BID [facility] Last Admin: 07/22/22 07:49 Dose: 20 mg Furosemide (Furosemide 20 Mg Tablet) 20 mg PO DAILY [facility] Last Admin: 07/22/22 07:55 Dose: 20 mg Guaifenesin/Codeine Phosphate (Guaifenesin/Codeine 10 Ml Udc) 10 ml PO Q4HP PRN PRN Reason: Cough Last Admin: 07/22/22 07:00 Dose: 10 ml Potassium Chloride 40 meq/ (Dextrose) 520 mls @ 130 mls/hr IV UD PRN PRN Reason: Potassium < 3 Magnesium Sulfate (Magnesium Sulfate) 2 gm in 50 mls @ 50 mls/hr IV UD PRN PRN Reason: Magnesium </= 1.6 Isosorbide Dinitrate (Isosorbide Dinitrate 10 Mg Tablet) 5 mg PO TIDAC [facility] Last Admin: 07/22/22 07:09 Dose: 5 mg Labetalol HCl (Labetalol 5 Mg/Ml Ml) 0 mg IV Q2HP PRN PRN Reason: Hypertension Lactulose (Lactulose 20 Gm/30 Ml Oral.Saira) 20 gm PO DAILYP PRN PRN Reason: Constipation Lamotrigine (Lamotrigine 100 Mg Tablet) 50 mg PO DAILY [facility] Last Admin: 07/22/22 08:06 Dose: 50 mg Lamotrigine (Lamotrigine 100 Mg Tablet) 150 mg PO HS [facility] Last Admin: 07/21/22 21:18 Dose: 150 mg Levothyroxine Sodium (Levothyroxine 100 Mcg Tablet) 100 mcg PO QAMAC [facility] Last Admin: 07/22/22 07:09 Dose: 100 mcg Lisinopril (Lisinopril 20 Mg Tablet) 20 mg PO QAM [facility] Last Admin: 07/22/22 07:49 Dose: 20 mg Lorazepam (Lorazepam 2 Mg/Ml Vial) 0.5 mg IV Q6HP PRN PRN Reason: ANXIETY/SEDATION Last Admin: 07/20/22 21:36 Dose: 0.5 mg Metoclopramide HCl (Metoclopramide 10 Mg/2 Ml Vial) 10 mg IV Q6HP PRN PRN Reason: Nausea And Vomiting Montelukast Sodium (Montelukast 10 Mg Tablet) 10 mg PO QPM [facility] Last Admin: 07/21/22 21:17 Dose: 10 mg Morphine Sulfate (Morphine 4 Mg/Ml Vial) 0 mg IV Q3HP PRN PRN Reason: Pain Last Admin: 07/22/22 02:48 Dose: 3 mg Nortriptyline HCl (Nortriptyline 25 Mg Capsule) 75 mg PO [facility] Last Admin: 07/21/22 21:17 Dose: 75 mg Ondansetron HCl (Ondansetron 4 Mg/2 Ml Vial) 4 mg IV Q4HP PRN PRN Reason: Nausea And Vomiting Linaclotide [Linzess (] 290 Mcg Capsule) 1 dose PO DAILYP PRN PRN Reason: Constipation Last Admin: 07/16/22 14:00 Dose: 1 dose Polyethylene Glycol (Polyethylene Glycol 3350 17 Gm Packet) 17 gm PO DAILYP PRN PRN Reason: Constipation Potassium Chloride (Potassium Chloride 20 Meq Tablet) 40 meq PO UD PRN PRN Reason: Potssium is 3-3.5 Potassium Chloride (Potassium Chloride 20 Meq Tablet) 40 meq PO UD PRN PRN Reason: Potassium < 3 Senna (Sennosides 1 Tablet) 2 tab PO DAILYP PRN PRN Reason: Constipation Last Admin: 07/15/22 21:33 Dose: 2 tab Sodium Chloride (0.9 % Sodium Chloride 10 Ml Syringe) 10 ml IV Q8 [facility] Last Admin: 07/22/22 05:23 Dose: 10 ml Tizanidine HCl (Tizanidine 4 Mg Tablet) 4 mg PO Q6HP PRN PRN Reason: Spasms Trazodone HCl (Trazodone Hcl 100 Mg Tablet) 125 mg PO [facility] Last Admin: 07/21/22 21:18 Dose: 125 mg Venlafaxine HCl (Venlafaxine 37.5 Mg Tab.Er.24h) 37.5 mg PO QDAY [facility] Last Admin: 07/22/22 08:05 Dose: 37.5 mg Venlafaxine HCl (Venlafaxine 75 Mg Cap.Xl.24h) 75 mg PO QDAY [facility] Last Admin: 07/22/22 08:05 Dose: 75 mg A/P Assessment and plan (1) COPD exacerbation: Status: Acute (2) CAP (community acquired pneumonia): Status: Acute Qualifiers: Laterality: right Lung location: lower lobe of lung Qualified Code(s): J18.9 - Pneumonia, unspecified organism (3) ARDS (adult respiratory distress syndrome): Status: Acute (4) YAMILEX on CPAP: Status: Chronic (5) Essential hypertension: Status: Chronic (6) Hypothyroidism: Status: Chronic Qualifiers: Hypothyroidism type: acquired Qualified Code(s): E03.9 - Hypothyroidism, unspecified Narrative A/P Narrative: Assessment and Plans: 1. Community acquired pneumonia: Transfer from inpatient PCU to [facility]. [place] telemetry. Supplemental oxygen therapy as needed to keep SPO2 above or equal to 88% Finished antibiotics Rocephin and azithromycin Cultures no growth to date CBC with auto differential to trend WBC 2. COPD with exacerbations: Supplemental oxygen therapy as needed to keep SPO2 above or equal to 88% Continue bronchodilators Finished Solu-Medrol 3. Obstructive sleep apnea on CPAP: Continue CPAP at night while sleeping 4. Essential hypertensions: Currently normotensive Continue lisinopril 5. History of recent left shoulder surgery by orthopedic surgeon Dr. Sykes: We will notify Dr. Sykes either to remove her stable while she is in-house or reschedule her appointment 6. Hypothyroidism: Continue oral Synthroid replacement GI ppx: PEPCID DVT ppx: Lovenox Code status: Full Prognosis: guarded Disposition: Inpatient med surg Time Spent With Patient Time: Total time spent is greater than 50% in coordination of care (as documented) at patient's floor/unit and/or counseling patient: Subsequent: Total time with patient: 35 - 49 minutes
[2022-07-22 14:40] LABS: M. Pneumoniae IGG 1.56
[2022-07-22] MEDS: NORTRIPTYLINE 25 MG CAPSULE PO SCH (20:50)
[2022-07-22] MEDS: traZODone HCL 100 MG TABLET PO SCH (20:50)
[2022-07-22] MEDS: MONTELUKAST 10 MG TABLET PO SCH (20:51)
[2022-07-22] MEDS: LORazepam 2 MG/ML VIAL IV PRN (22:50)
[2022-07-23] MEDS: IPRATROPIUM/ALBUTEROL 3 ML AMPUL.NEB NEB SCH (04:32)
[2022-07-23] MEDS: 0.9 % SODIUM CHLORIDE 10 ML SYRINGE IV SCH (06:14)
[2022-07-23 06:22] LABS: Basophils # (Auto) 0.08 K/mcL (0.00-0.30); Basophils % (Auto) 0.4 % (0.0-2.0); Eosinophils # (Auto) 0.74 K/mcL (0.00-0.70); Hematocrit 35.1 % (34.1-44.9); Hemoglobin 11.3 g/dL (11.2-15.7); Lymphocytes # (Auto) 5.73 K/mcL (1.50-4.80); Lymphocytes % (Auto) 31.3 % (15.5-49.0); Mean Cell Volume 90.9 fL (80.0-100.0); Mean Corpuscular HGB Conc 32.2 g/dL (31.0-36.0); Mean Platelet Volume 9.6 fL (8.8-12.5); Monocytes # (Auto) 1.07 K/mcL (0.10-0.90); Monocytes % (Auto) 5.8 % (1.0-12.0); Neutrophils % (Auto) 54.1 % (38.0-78.0); Platelet Count 305 K/mcL (140-440); RBC 3.86 M/mcL (3.59-5.38); Red Cell Distribution Width 14.3 % (11.5-14.5); WBC 18.3 K/mcL (4.5-11.0)
[2022-07-23 06:38] LABS: ALT/SGPT 22 U/L (<40); AST/SGOT 23 U/L (<32); Alkaline Phosphatase 92 U/L (39-117); Bilirubin,Total 0.2 mg/dL (0.1-1.0); Blood Urea Nitrogen 20 mg/dL (6-20); Calcium 8.5 mg/dL (8.6-10.4); Carbon Dioxide 29 mmol/L (22-30); Chloride 101 mmol/L (96-108); Globulin 3.1 gm/dL (2.2-3.7); Glomerular Filtration Rate 75; Glucose 99 mg/dL (70-105)
[2022-07-23] MEDS: LEVOTHYROXINE 100 MCG TABLET PO SCH (07:06)
[2022-07-23] MEDS: guaiFENesin/CODEINE 10 ML UDC PO PRN ×2 (07:06→11:44)
[2022-07-23] MEDS: ISOSORBIDE DINITRATE 10 MG TABLET PO SCH ×2 (07:06→11:14)
[2022-07-23] MEDS: FAMOTIDINE 20 MG TABLET PO SCH (08:49)
[2022-07-23] MEDS: busPIRone 5 MG TABLET PO SCH (08:49)
[2022-07-23] MEDS: lamoTRIgine 100 MG TABLET PO SCH (08:50)
[2022-07-23] MEDS: FUROSEMIDE 20 MG TABLET PO SCH (08:50)
[2022-07-23] MEDS: DOCUSATE SODIUM 100 MG CAPSULE PO SCH (08:50)
[2022-07-23] MEDS: BENZONATATE 100 MG CAPSULE PO PRN (08:50)
[2022-07-23] MEDS: LISINOPRIL 20 MG TABLET PO SCH (08:50)
[2022-07-23] MEDS: VENLAFAXINE 75 MG CAP.XL.24H PO SCH (08:51)
[2022-07-23] MEDS: ENOXAPARIN 40 MG/0.4 ML SYRINGE SQ SCH (08:51)
[2022-07-23] MEDS: VENLAFAXINE 37.5 MG TAB.ER.24H PO SCH (08:51)
[2022-07-23] MEDS: BUDESONIDE 0.5 MG/2 ML AMPUL.NEB NEB SCH (09:06)
[2022-07-23] MEDS: HYDROcodone/APAP 5/325MG TABLET PO PRN ×2 (09:31→13:25)
--- NOTE | 2022-07-23 11:29 | Discharge Summary ---
Discharge Provider Provider IMPORTANT FOLLOW-UP INFORMATION FOR PCP: Patient information: Note initiated : 07/23/22 at 11:25 am Service Date, if different from initiated Date: [] Patient: Manuela Feliciano 47 y/o F admitted on 07/15/22 for pneumonia/hypoxic pneumonia. Chief Complaint: [] Date of admission: 07/15/22 17:06 Discharge date: 07/23/22 Primary care physician: Kelsea Patterson NP Attending physician on admission: Alli Armenta Consults: 07/15/22 14:10 Consult to Physician [CONS] Stat Comment: Consulting Provider: Alli Armenta Reason For Exam: Physician to Consult Attending physician on discharge: Chi Tolu Pui COURSE Hospital Course Hospital course: Ms. Feliciano is a 47 year old F Presents with shortness of breath and worsening cough. Patient states over the past couple days she has had developing increased shortness of breath and cough. Still denies ago she says she does not feel quite right but can explain in any detail. The next day she started developing gradually increasing shortness of breath. Her cough was not particularly prominent at that time as she does have a chronic cough. However the next morning her cough significantly increased in severity. Her shortness of breath also significantly increased. When she stood up she got dizzy. She is also felt delirious. At one point she did use her CPAP during the day which helped her to feel better and she was able to sleep some with it. She typically only wears oxygen 4 L at night with her CPAP but does not typically wear during the day. Patient denies fevers But has been sweaty. She says she has had a panic attack as well. Patient did have shoulder surgery for 5 days ago on the . Consideration for PE was discussed in the ED with the patient. Patient refused any contrast given her allergy, she is aware of this being in the differential. However, CT chest is significant for pulmonary diffuse parenchymal involvement indicating an alternate explanation, pulmonary aa are normal caliber and she denies unilateral calf pain or swelling. No sudden onset of dyspnea. She was remained active since surgery, as active as she was before surgery. She has chronic pain everywhere she says including fibromyalgia and she takes hydrocodone's. She complains of constipation. In the ER she had a leukocytosis of 16. CT with mosaic lung parenchyma bilaterally and small patchy infiltrate in the right lung. Patient started on IV antibiotics in the ED. Patient on 10 L oxy mask with sats in the mid 90s in the ED. Originally she was hypoxic in the low 80s on room air in the ED. 07/16 Patient required BiPAP overnight. Patient states she does feel like she is breathing a little easier and her cough is improving. But again noted needed increasing oxygen support and poor reserve when off. 07/17 Patient says her cough is starting to loosen up and able to cough up more phlegm. Still awaiting sputum culture. On BiPAP overnight. Goal is to get her down to CPAP at night as she is on at home with oxygen and then room air during the day while she is awake. Leukocytosis worsened but likely secondary to steroids started. Awaiting manual differential. Patient denies shortness of breath at rest. And improving when she is getting up and moving. 07/18 Patient states her breathing is not too bad until she has coughing fits. Coughing fits are also causing her chest pain and rib pain. She was on BiPAP overnight but not as long. She is on Vapotherm at 45 L/min at 60 FiO2. Leukocytosis mildly worse but patient just started on steroids we will continue to monitor, no bandemia. 07/19 Patient states she is having less coughing fits which really drop her oxygen saturations and take some time to come out. Denies any shortness of breath while in bed at rest. She is on 45 L/min at 55 FiO2 and will start titrating down her FiO2 again. Leukocytosis present but starting to improve. CRP which is elevating starting to improve. Excellent urine output yesterday but did not make a significant improvement in her breathing status. 07/20 Patient making slow progress. Coughing frequency decreasing. She did have a coughing fit middle the night which caused her desat for a while but she came back up. Follow-up chest x-ray today. Down to 45 L/min and 40% FiO2. Persistent leukocytosis. Patient does not think she can prone with her shoulder but will Position as close as possible. 07/21 Patient continues to gradually make progress. Patient on CPAP last night. On high flow nasal cannula 7 L this morning. Continues to have occasional coughing fit with desaturations but seems to be less severe. Leukocytosis persistent but no bandemia. Continue pulmonary toilet and nebs 07/22: Currently on 2L/min nasal cannula oxygen. All cultures no growth to date. Had an episode of dyspnea at around 330am. Patient is complaining of improving degree of shortness of breath right now. No cough or wheezing at the moment. No fever chills or diaphoresis right now. Transferred from inpatient PCU to [facility]. DC telemetry. DC antibiotics Rocephin and steroid Solu-Medrol. Continue bronchodilators. Continue to wean supplemental oxygen. Overall condition stable. 07/23: Patient reached clinical stability. Decision made to discharge home with home health therapy. Follow-up appointment with PCP 1 to 2 weeks arranged for the patient's. Prescriptions sent to pharmacy. All questions answered prior to patient being physically discharged. Discharge diagnosis: pneumonia and COPD exacerbation Time Spent with Patient Time attestation: Total time spent providing and/or coordinating discharge services: Time spent: Less than 30 minutes EXAM Constitutional Vitals: Temp Pulse Resp BP Pulse Ox O2 Del Method O2 Flow Rate 36.4 C 82 20 100/60 92 Nasal Cannula 2 07/23/22 08:00 07/23/22 09:08 07/23/22 09:08 07/23/22 08:00 07/23/22 09:08 07/23/22 09:08 07/23/22 09:08 General appearance: cooperative and no acute distress Head Head exam: Present atraumatic and normocephalic Eye Eye exam: Present EOMI and PERRL ENT ENT exam: Present mucous membranes moist, normal exam and normal external ear exam Additional comments: Nasal cannula in place Neck Neck exam: Present normal inspection; Absent lymphadenopathy, tenderness or thyromegaly Respiratory Respiratory exam: Present rhonchi; Absent accessory muscle use, respiratory di stress or wheezes Cardiovascular Cardiovascular exam: Present normal rate and rhythm; Absent JVD GI/Abdominal GI/Abdominal exam: Present normal bowel sounds and soft; Absent organomegaly or tenderness Extremities Exam Extremities exam: Present normal capillary refill; Absent full ROM, normal inspection or tenderness Additional comments: Left shoulder sling in place Neurological Exam Neurological exam: Present alert, CN II-XII intact and oriented X3; Absent motor sensory deficit Psychiatric Psychiatric exam: Present normal affect and normal mood; Absent anxious or depressed Skin Skin exam: Present dry and intact Discharge Data Data Completed and Pending Labs on day of discharge: Labs from last 24 hours 07/23/22 07/23/22 07/15/22 05:26 05:26 17:36 WBC 18.3 H RBC 3.86 Hgb 11.3 Hct 35.1 MCV 90.9 MCH 29.3 MCHC 32.2 RDW 14.3 Plt Count 305 MPV 9.6 Immature Gran % (Auto) 4.4 H Neut % (Auto) 54.1 Lymph % (Auto) 31.3 Coos % (Auto) 5.8 Eos % (Auto) 4.0 Baso % (Auto) 0.4 Lymph # (Auto) 5.73 H Coos # (Auto) 1.07 H Eos # (Auto) 0.74 H Baso # (Auto) 0.08 Immature Gran # 0.81 H Absolute Neutrophils 9.87 H Sodium 138 Potassium 3.8 Chloride 101 Carbon Dioxide 29 Anion Gap 8.0 BUN 20 Creatinine 0.9 GFR Calculation 75 Glucose 99 Calcium 8.5 L Total Bilirubin 0.2 AST 23 ALT 22 Alkaline Phosphatase 92 Total Protein 6.1 Albumin 3.0 L Globulin 3.1 Albumin/Globulin Ratio 1.0 Mycoplasma pneumon IgG 1.56 H Mycoplasma pneumon IgM 40 Discharge Plan Patient/Caregiver Discharge Instructions Activity: increase activity as tolerated Diet: Regular Diet Prescriptions: New benzonatate 100 mg Capsule 200 mg PO TIDP PRN (Reason: Cough) Qty: 20 0RF Robitussin Cough-Chest Randal DM 5-100 mg/5 mL liquid 10 ml PO Q8H PRN (Reason: cough) Qty: 118 2RF Continued trazodone 50 mg tablet 50 mg PO QHS PRN (Reason: insomnia) Qty: 30 3RF Rx Instructions: Can take 0.5 - 1 tablet in addition to 100 mg tablet venlafaxine 37.5 mg capsule,extended release 24hr 37.5 mg PO QDAY Qty: 30 2RF Rx Instructions: ALSO TAKING 75 MG CAPSULE IN AM ondansetron 4 mg tablet,disintegrating 4 mg PO Q8H PRN (Reason: nausea and vomiting) alprazolam 0.5 mg tablet 0.5 mg PO BIDP PRN (Reason: Anxiety) Qty: 20 0RF Linzess 290 mcg capsule 290 mcg PO QDAY PRN (Reason: Constipation) buspirone 10 mg tablet 10 mg PO TID 90 Days Qty: 270 2RF lamotrigine 100 mg tablet See Rx Instructions .ROUTE .COMPLEX 90 Days Qty: 180 2RF Rx Instructions: TAKE 1/2 TAB BY MOUTH IN AM + 1.5 TABS BY MOUTH AT NIGHT trazodone 100 mg tablet 100 mg PO HS 90 Days Qty: 90 2RF venlafaxine 75 mg capsule,extended release 24hr 75 mg PO QDAY 90 Days Qty: 90 2RF tizanidine 4 mg capsule 4 mg PO Q6H PRN (Reason: Spasms) hydrocortisone [Anti-Itch (HC)] 1 % cream 1 applic topical BID PRN (Reason: Itching) nortriptyline 75 mg capsule 75 mg PO QHS famotidine [Pepcid AC] 10 mg tablet 20 mg PO BID albuterol sulfate [Ventolin HFA] 90 mcg/actuation HFA aerosol inhaler 2 puff inhalation Q6H PRN (Reason: shortness of breath or wheezing) Qty: 8.5 6RF lisinopril 20 MG tablet 20 mg PO QAM furosemide 20 MG tablet 20 mg PO DAILY levothyroxine 100 MCG tablet 100 mcg PO DAILY montelukast 10 mg tablet 10 mg PO QPM isosorbide dinitrate 5 mg Tablet 5 mg PO TIDAC hydrocodone-acetaminophen 10-325 mg Tablet 1 - 2 tab PO Q4H PRN (Reason: Pain) naproxen sodium [Aleve] 220 mg Capsule 440 mg PO BID Patient Comments: Taking post left shoulder surgery Rx Instructions: Take 2 tabs in AM and 2 in PM Follow Up Plan Follow up with: Kelsea Patterson NP-C [Primary Care Provider] - Patient Disposition: Home Health Service Prognosis: Fair Rehab Potential: Good I certify that the patient requires SNF services: No Overall status at discharge: patient is progressing back to baseline Discharge Orders: Discharge Order (Routine); Ordered 07/23/22 Ordered By: Rashawn Flores
== END 2022-07-23 13:25 | disposition home health service (06) | DRG 871 ==
LOC: ED 12:30 → ICU 17:06 → MEDSUR 07-22 15:57
PROVIDERS: ADMIT Internal Medicine; ATTEND Internal Medicine

== ENCOUNTER 2024-10-03 21:50 | Inpatient (IN) ==
[2024-10-03 22:52] LABS: Basophils # (Auto) 0.01 K/mcL (0.00-0.30); Basophils % (Auto) 0 % (0.0-2.0); Eosinophils # (Auto) 0.02 K/mcL (0.00-0.70); Eosinophils % (Auto) 0.1 % (0.0-7.0); Hematocrit 38.5 % (34.1-44.9); Hemoglobin 12.1 g/dL (11.2-15.7); Lymphocytes # (Auto) 1.61 K/mcL (1.50-4.80); Lymphocytes % (Auto) 7.5 % (15.5-49.0); Mean Corpuscular HGB Conc 31.4 g/dL (31.0-36.0); Monocytes # (Auto) 1.67 K/mcL (0.10-0.90); Monocytes % (Auto) 7.8 % (1.0-12.0); Neutrophils % (Auto) 83.7 % (38.0-78.0); Platelet Count 585 K/mcL (140-440); RBC 4.34 M/mcL (3.59-5.38); WBC 21.5 K/mcL (4.5-11.0)
[2024-10-03 22:58] LABS: INR 1.2 (0.9-1.1); Partial Thromboplastin Time 30.4 sec (20.0-37.0); Prothrombin Time 15.8 sec (11.9-14.5)
[2024-10-03 23:02] LABS: Creatine Kinase 67 U/L (24-170); Thyroid Stimulating Hormone 1.86 uIU/mL (0.27-5.01)
[2024-10-03 23:04] LABS: ALT/SGPT 23 U/L (<40); AST/SGOT 35 U/L (<32); Albumin 2.8 gm/dL (3.2-5.2); Albumin/Globulin Ratio 0.5 (1.0-2.3); Alkaline Phosphatase 98 U/L (39-117); Anion Gap 13.0 (8.0-16.0); Bilirubin,Direct < 0.2 mg/dL (0-0.3); Bilirubin,Total 0.5 mg/dL (0.1-1.0); Blood Urea Nitrogen 18 mg/dL (6-20); C-Reactive Protein 20.40 mg/dL (0.03-0.80); Calcium 9.8 mg/dL (8.6-10.4); Carbon Dioxide 24 mmol/L (22-30); Chloride 93 mmol/L (96-108); Globulin 6.2 gm/dL (2.2-3.7); Glucose 222 mg/dL (70-105); Potassium 4.2 mmol/L (3.3-5.1); Sodium 130 mmol/L (133-145)
[2024-10-04 00:44] LABS: Bilirubin,Urine Negative (Negative); Color,Urine YELLOW; Glucose,Urine (UA) 50 mg/dL (Negative); Ketones,Urine Negative (Negative); Leukocyte Esterase,Urine Negative /uL (Negative); PH,Urine 6.0 (5.0-9.0); Protein,Urine Negative (Negative); Specific Gravity,Urine 1.010 (1.000-1.035); Urobilinogen,Urine Negative
[2024-10-04 00:52] LABS: Barbiturate Screen,Urine None detected; Benzodiazepines Screen,Urine None detected; Fentanyl, Urine Screen None Detected; Opiate Screen,Urine Suspect Positive; Oxycodone, Urine Screen None detected; Phencyclidine Screen,Urine None detected
[2024-10-04] MEDS: cefTRIAXone 2 GM in DEXTROSE 5% IN WATER 50 ML IV ONE (02:25)
[2024-10-04] MEDS: AZITHROMYCIN 500 MG in 0.9 % SODIUM CHLORIDE 250 ML IV ONE (03:01)
[2024-10-04] MEDS: fentaNYL 100 MCG/2 ML VIAL IV ONE (05:42)
[2024-10-04] MEDS: DIAZEPAM 10 MG/2 ML SYRINGE IV ONE (07:59)
[2024-10-04] MEDS ORDERED: IPRATROPIUM/ALBUTEROL 3 ML AMPUL.NEB NEB PRN (10:38)
[2024-10-04] MEDS ORDERED: ONDANSETRON 4 MG/2 ML VIAL IV PRN (10:38)
[2024-10-04] MEDS ORDERED: guaiFENesin/DEXTROMETHORPHAN 5ML UD CUP PO PRN (10:38)
[2024-10-04] MEDS: 0.9 % SODIUM CHLORIDE 1,000 ML IV SCH (11:09)
[2024-10-04] MEDS ORDERED: IPRATROPIUM 2.5 ML AMPUL.NEB NEB PRN (11:39)
[2024-10-04] MEDS ORDERED: ALBUTEROL SULFATE 60 PUFF INHALER INH PRN (11:39)
[2024-10-04 12:35] LABS: Estimated Average Glucose(eAG) 131.0 mg/dL; Hemoglobin A1C 6.2 % Hgb (4.0-6.0)
[2024-10-04] MEDS: VENLAFAXINE 37.5 MG TAB.ER.24H PO SCH (14:55)
[2024-10-04] MEDS: GABAPENTIN 300 MG CAPSULE PO SCH (14:56)
[2024-10-04] MEDS: 0.9 % SODIUM CHLORIDE 10 ML SYRINGE IV SCH (14:56)
[2024-10-04] MEDS: cefTRIAXone 2 GM in DEXTROSE 5% IN WATER 50 ML IV SCH (17:40)
[2024-10-04] MEDS: AZITHROMYCIN 500 MG in DEXTROSE 5% IN WATER 250 ML IV SCH (17:40)
[2024-10-04] MEDS: ISOSORBIDE MONONITRATE 20 MG TABLET PO SCH (17:40)
[2024-10-04] MEDS: buPROPion 150 MG TAB.SR.12H PO SCH (21:14)
[2024-10-04] MEDS: SENNOSIDES 1 TABLET PO SCH (21:14)
[2024-10-04] MEDS: FAMOTIDINE 20 MG TABLET PO SCH (21:14)
[2024-10-04] MEDS: DOCUSATE SODIUM 100 MG CAPSULE PO SCH (21:14)
[2024-10-04] MEDS: NORTRIPTYLINE 25 MG CAPSULE PO SCH (21:14)
[2024-10-04] MEDS: MONTELUKAST 10 MG TABLET PO SCH (21:15)
[2024-10-04] MEDS: MUPIROCIN OINT 2% 22GM TOPICAL SCH (21:26)
[2024-10-05 06:02] LABS: Basophils # (Auto) 0.04 K/mcL (0.00-0.30); Basophils % (Auto) 0.2 % (0.0-2.0); Eosinophils # (Auto) 0.31 K/mcL (0.00-0.70); Eosinophils % (Auto) 1.9 % (0.0-7.0); Hematocrit 32.5 % (34.1-44.9); Hemoglobin 9.9 g/dL (11.2-15.7); Lymphocytes # (Auto) 2.64 K/mcL (1.50-4.80); Lymphocytes % (Auto) 16.0 % (15.5-49.0); Mean Corpuscular HGB Conc 30.5 g/dL (31.0-36.0); Monocytes # (Auto) 1.47 K/mcL (0.10-0.90); Monocytes % (Auto) 8.9 % (1.0-12.0); Neutrophils % (Auto) 71.9 % (38.0-78.0); Platelet Count 484 K/mcL (140-440); RBC 3.60 M/mcL (3.59-5.38); WBC 16.5 K/mcL (4.5-11.0)
[2024-10-05 06:25] LABS: ALT/SGPT 21 U/L (<40); AST/SGOT 20 U/L (<32); Albumin 2.6 gm/dL (3.2-5.2); Albumin/Globulin Ratio 0.5 (1.0-2.3); Alkaline Phosphatase 81 U/L (39-117); Anion Gap 9.0 (8.0-16.0); Bilirubin,Total 0.4 mg/dL (0.1-1.0); Blood Urea Nitrogen 12 mg/dL (6-20); Calcium 9.1 mg/dL (8.6-10.4); Carbon Dioxide 27 mmol/L (22-30); Chloride 103 mmol/L (96-108); Globulin 5.1 gm/dL (2.2-3.7); Glucose 114 mg/dL (70-105); Potassium 3.6 mmol/L (3.3-5.1); Sodium 139 mmol/L (133-145)
[2024-10-05] MEDS: LEVOTHYROXINE SODIUM 112 MCG TABLET PO SCH (06:44)
[2024-10-05] MEDS: MAGNESIUM OXIDE 400 MG TABLET PO SCH (08:24)
[2024-10-05] MEDS: ESTRADIOL 1 MG TABLET PO SCH (08:25)
[2024-10-05] MEDS: ENOXAPARIN 40 MG/0.4 ML SYRINGE SQ SCH (08:26)
[2024-10-05] MEDS: SODIUM CHLORIDE NASAL 1 SPRAY BOTTLE NAS PRN (08:26)
[2024-10-05] MEDS ORDERED: BUPRENORPHINE TOPICAL SCH (10:00)
[2024-10-05] MEDS: ACETAMINOPHEN 325 MG TABLET PO PRN (10:15)
[2024-10-05] MEDS: buPROPion 150 MG TAB.SR.12H PO SCH (13:02)
[2024-10-05] MEDS: LIDOCAINE 4% TOP PATCH TOPICAL SCH (13:02)
[2024-10-05] MEDS: HYDROcodone/APAP 10/325MG TABLET PO PRN (13:03)
[2024-10-06 05:57] LABS: Basophils # (Auto) 0.04 K/mcL (0.00-0.30); Basophils % (Auto) 0.3 % (0.0-2.0); Eosinophils # (Auto) 0.34 K/mcL (0.00-0.70); Eosinophils % (Auto) 2.4 % (0.0-7.0); Hematocrit 31.6 % (34.1-44.9); Hemoglobin 9.7 g/dL (11.2-15.7); Lymphocytes # (Auto) 2.63 K/mcL (1.50-4.80); Lymphocytes % (Auto) 18.3 % (15.5-49.0); Mean Corpuscular HGB Conc 30.7 g/dL (31.0-36.0); Monocytes # (Auto) 1.39 K/mcL (0.10-0.90); Monocytes % (Auto) 9.6 % (1.0-12.0); Neutrophils % (Auto) 68.3 % (38.0-78.0); Platelet Count 471 K/mcL (140-440); RBC 3.54 M/mcL (3.59-5.38); WBC 14.4 K/mcL (4.5-11.0)
[2024-10-06 06:19] LABS: ALT/SGPT 32 U/L (<40); AST/SGOT 32 U/L (<32); Albumin 2.6 gm/dL (3.2-5.2); Albumin/Globulin Ratio 0.5 (1.0-2.3); Alkaline Phosphatase 87 U/L (39-117); Anion Gap 10.0 (8.0-16.0); Bilirubin,Total 0.3 mg/dL (0.1-1.0); Blood Urea Nitrogen 11 mg/dL (6-20); Calcium 9.2 mg/dL (8.6-10.4); Carbon Dioxide 26 mmol/L (22-30); Chloride 100 mmol/L (96-108); Globulin 5.0 gm/dL (2.2-3.7); Glucose 113 mg/dL (70-105); Potassium 3.7 mmol/L (3.3-5.1); Sodium 136 mmol/L (133-145)
[2024-10-06] MEDS: TRIAMCINOLONE CREAM 0.1% 15G 1 DOSE TUBE TOPICAL PRN (09:56)
[2024-10-06] MEDS: BACLOFEN 10 MG TABLET PO PRN (11:18)
[2024-10-06] MEDS: METHOCARBAMOL 500 MG TABLET PO PRN (23:07)
[2024-10-07 05:48] LABS: Basophils # (Auto) 0.04 K/mcL (0.00-0.30); Basophils % (Auto) 0.3 % (0.0-2.0); Eosinophils # (Auto) 0.31 K/mcL (0.00-0.70); Eosinophils % (Auto) 2.1 % (0.0-7.0); Hematocrit 34.1 % (34.1-44.9); Hemoglobin 10.5 g/dL (11.2-15.7); Lymphocytes # (Auto) 2.84 K/mcL (1.50-4.80); Lymphocytes % (Auto) 19.5 % (15.5-49.0); Mean Corpuscular HGB Conc 30.8 g/dL (31.0-36.0); Monocytes # (Auto) 1.38 K/mcL (0.10-0.90); Monocytes % (Auto) 9.5 % (1.0-12.0); Neutrophils % (Auto) 67.5 % (38.0-78.0); Platelet Count 521 K/mcL (140-440); RBC 3.83 M/mcL (3.59-5.38); WBC 14.6 K/mcL (4.5-11.0)
[2024-10-07 06:33] LABS: ALT/SGPT 34 U/L (<40); AST/SGOT 26 U/L (<32); Albumin 2.8 gm/dL (3.2-5.2); Albumin/Globulin Ratio 0.5 (1.0-2.3); Alkaline Phosphatase 88 U/L (39-117); Anion Gap 11.0 (8.0-16.0); Bilirubin,Total 0.5 mg/dL (0.1-1.0); Blood Urea Nitrogen 8 mg/dL (6-20); Calcium 9.4 mg/dL (8.6-10.4); Carbon Dioxide 27 mmol/L (22-30); Chloride 98 mmol/L (96-108); Globulin 5.7 gm/dL (2.2-3.7); Glucose 118 mg/dL (70-105); Potassium 3.9 mmol/L (3.3-5.1); Sodium 136 mmol/L (133-145)
[2024-10-07] MEDS: LEVOFLOXACIN 750 MG TABLET PO SCH (10:53)
[2024-10-07 17:09] LABS: Hypochromasia 1+ (None Seen); RBC Morphology ABNORMAL (Normal)
[2024-10-08 06:31] LABS: Basophils # (Auto) 0.05 K/mcL (0.00-0.30); Basophils % (Auto) 0.3 % (0.0-2.0); Eosinophils # (Auto) 0.32 K/mcL (0.00-0.70); Eosinophils % (Auto) 2.2 % (0.0-7.0); Hematocrit 33.4 % (34.1-44.9); Hemoglobin 10.3 g/dL (11.2-15.7); Lymphocytes # (Auto) 2.68 K/mcL (1.50-4.80); Lymphocytes % (Auto) 18.4 % (15.5-49.0); Mean Corpuscular HGB Conc 30.8 g/dL (31.0-36.0); Monocytes # (Auto) 1.40 K/mcL (0.10-0.90); Monocytes % (Auto) 9.6 % (1.0-12.0); Neutrophils % (Auto) 68.3 % (38.0-78.0); Platelet Count 513 K/mcL (140-440); RBC 3.73 M/mcL (3.59-5.38); WBC 14.5 K/mcL (4.5-11.0)
[2024-10-08 07:52] LABS: ALT/SGPT 26 U/L (<40); AST/SGOT 21 U/L (<32); Albumin 2.7 gm/dL (3.2-5.2); Albumin/Globulin Ratio 0.5 (1.0-2.3); Alkaline Phosphatase 81 U/L (39-117); Anion Gap 16.0 (8.0-16.0); Bilirubin,Direct < 0.2 mg/dL (0-0.3); Bilirubin,Total 0.3 mg/dL (0.1-1.0); Blood Urea Nitrogen 11 mg/dL (6-20); Calcium 9.2 mg/dL (8.6-10.4); Carbon Dioxide 23 mmol/L (22-30); Chloride 98 mmol/L (96-108); Globulin 5.2 gm/dL (2.2-3.7); Glucose 122 mg/dL (70-105); Phosphorous 3.1 mg/dL (2.5-4.5); Potassium 4.0 mmol/L (3.3-5.1); Sodium 137 mmol/L (133-145); Triglycerides 70 mg/dL (<150); Uric Acid 4.5 mg/dL (2.5-8.0)
[2024-10-08 08:42] VITALS: O2SAT 90
[2024-10-08] MEDS ORDERED: 0.9 % SODIUM CHLORIDE 10 ML SYRINGE IV PRN (09:48)
[2024-10-08] MEDS ORDERED: ALTEPLASE 2 MG VIAL IV PRN (09:48)
[2024-10-08] MEDS ORDERED: SODIUM CHLORIDE IRRIG SOLUTION 250 ML BOTTLE IRR ONE (10:55)
[2024-10-08] MEDS ORDERED: LIDOCAINE 1% 10 ML VIAL SQ ONE (10:55)
[2024-10-08] MEDS ORDERED: HEPARIN 10 UNITS/ML 5ML FLUSH IV ONE (10:55)
[2024-10-08] MEDS: FUROSEMIDE 40 MG/4 ML VIAL IV SCH (11:27)
[2024-10-08] MEDS: cefTRIAXone 2 GM in DEXTROSE 5% IN WATER 50 ML IV SCH (13:18)
[2024-10-08 16:22] VITALS: TEMP 98.9
[2024-10-08] MEDS ORDERED: HEPARIN 10 UNITS/ML 5ML FLUSH IV SCH ×2 (21:00)
[2024-10-08] MEDS ORDERED: 0.9 % SODIUM CHLORIDE 10 ML SYRINGE IV SCH (21:00)
== END 2024-10-08 17:20 | disposition home or self-care (01) | DRG 871 ==
LOC: ED 21:50 → ICU 10-04 10:37 → MEDSUR 10-05 16:04
PROVIDERS: ADMIT Internal Medicine; ATTEND Internal Medicine